=== PATIENT | female | born 1945 | race Hispanic/Latino ===

== ENCOUNTER 2017-06-16 17:11 | Emergency (ER) | payer OTHER ==
[2017-06-16 17:43] LABS: BASOPHILS % (AUTO) 0.9 % (0.0-5.0); EOSINOPHILS % (AUTO) 1.8 % (0.0-8.0); HEMATOCRIT 31.2 % (36-48); LYMPHOCYTES % (AUTO) 34.4 % (21.0-51.0); MEAN CORPUSCULAR HEMOGLOBIN 27.5 pg (27.0-33.0); MEAN CORPUSCULAR HGB CONC 34.3 g/dL (32.0-36.0); MEAN CORPUSCULAR VOLUME 80.2 fL (79-99); MONOCYTES % (AUTO) 6.5 % (3.0-13.0); NEUTROPHILS % (AUTO) 56.4 % (40.0-77.0); PLATELET COUNT (AUTO) 348 K/uL (130-400); RED BLOOD CELL COUNT(AUTO) 3.89 MIL/uL (4.00-5.50); RED CELL DISTRIBUTION WIDTH 14.6 % (11.0-15.5); WHITE BLOOD COUNT (AUTO) 7.5 K/uL (4.8-10.8)
[2017-06-16] MEDS ORDERED: ASPIRIN 325 MG TABLET ONE (17:46)
[2017-06-16] MEDS ORDERED: FAMOTIDINE 20MG TAB 20 MG TAB ONE (17:47)
[2017-06-16] MEDS ORDERED: SODIUM CHLORIDE 0.9% 1000ML 1,000 ML IV ONE (17:47)
[2017-06-16 18:18] LABS: B-TYPE NATRIURETIC PEPTIDE 24 pg/mL (0-100)
[2017-06-16 18:32] LABS: CARBON DIOXIDE 29 mmol/L (21-32); CHLORIDE 99 mmol/L (101-111); CREATININE 1.1 mg/dL (0.5-1.5); GLOMERULAR FILTR. RATE CALC 52 mL/min (>60); GLUCOSE,RANDOM 115 mg/dL (70-105); POTASSIUM 3.3 mmol/L (3.5-5.1); SODIUM SERUM 137 mmol/L (136-145); UREA NITROGEN, BLOOD 16 mg/dL (7-18)
[2017-06-16 18:45] LABS: ALANINE AMINOTRANSFERASE 15 U/L (12-78); ALBUMIN 3.3 g/dL (3.5-5.0); ASPARTATE AMINOTRANSFERASE 12 U/L (10-37); BILIRUBIN,TOTAL 0.2 mg/dL (0.2-1.0); CREATINE KINASE MB < 0.5 ng/mL (0.5-3.6); CREATINE KINASE, TOTAL 63 U/L (21-232); TOTAL PROTEIN, SERUM 7.4 g/dL (6.0-8.3)
[2017-06-16 20:30] LABS: APPEARANCE,URINE Clear (CLEAR); BILIRUBIN,URINE Negative (NEGATIVE); COLOR,URINE Yellow (YELLOW); GLUCOSE, URINE (UA) Negative (NEGATIVE); KETONES,URINE Negative (NEGATIVE); LEUKOCYTE ESTERASE ,URINE Large (NEGATIVE); NITRATE,URINE Negative (NEGATIVE); OCCULT BLOOD,URINE Negative (NEGATIVE); PROTEIN,URINE Negative (NEGATIVE); UROBILINOGEN,URINE 0.2 mg/dL (0.2-1.0)
[2017-06-16 20:45] LABS: BACTERIA,URINE Few /HPF (None Seen)
== END 2017-06-16 20:41 | disposition home or self-care (01) ==
LOC: EDH 17:11
DX: R07.9 Chest pain, unspecified (principal); E11.9 Type 2 diabetes mellitus without complications; E78.5 Hyperlipidemia, unspecified; K21.9 Gastro-esophageal reflux disease without esophagitis; I10 Essential (primary) hypertension; Z88.6 Allergy status to analgesic agent; Z79.4 Long term (current) use of insulin
CPT/HCPCS: 36415; 71045; 80053; 81001; 82550; 82553; 83880; 84443; 84484; 85025; 86141; 87804 ×2; 93005; 96360; 99285; J7030

== ENCOUNTER → 2017-06-22 | Outpatient (CLI) | payer OTHER ==
[~2017-06-22] MED LIST: REGADENOSON 0.4 MG/5 ML PF SYG IVP SCH
== END | disposition home or self-care (01) ==
LOC: RAH 08:09
PROVIDERS: ATTEND Family Medicine
DX: I25.111 Atherosclerotic heart disease of native coronary artery with angina pectoris with documented spasm (principal); I10 Essential (primary) hypertension
CPT/HCPCS: 78452; 93017; 96374; A9500 ×2; J2785

== ENCOUNTER → 2017-08-03 | Outpatient (CLI) | payer OTHER | END | disposition home or self-care (01) | LOC: RAH 14:23 | PROVIDERS: ATTEND Family Medicine | DX: Z12.31 Encounter for screening mammogram for malignant neoplasm of breast (principal) | CPT/HCPCS: 77067 ==

== ENCOUNTER 2017-09-07 11:47 | Emergency (ER) | payer OTHER ==
[2017-09-07 12:25] LABS: BASOPHILS % (AUTO) 0.2 % (0.0-5.0); EOSINOPHILS % (AUTO) 1.1 % (0.0-8.0); HEMATOCRIT 31.2 % (36-48); MEAN CORPUSCULAR HEMOGLOBIN 27.5 pg (27.0-33.0); MEAN CORPUSCULAR HGB CONC 34.3 g/dL (32.0-36.0); MEAN CORPUSCULAR VOLUME 80.2 fL (79-99); MONOCYTES % (AUTO) 5.9 % (3.0-13.0); NEUTROPHILS % (AUTO) 66.8 % (40.0-77.0); PLATELET COUNT (AUTO) 350 K/uL (130-400); RED BLOOD CELL COUNT(AUTO) 3.89 MIL/uL (4.00-5.50); RED CELL DISTRIBUTION WIDTH 14.6 % (11.0-15.5); WHITE BLOOD COUNT (AUTO) 8.6 K/uL (4.8-10.8)
[2017-09-07 12:47] LABS: CREATININE 1.8 mg/dL (0.5-1.5); POTASSIUM 3.1 mmol/L (3.5-5.1)
[2017-09-07] MEDS ORDERED: SODIUM CHLORIDE 0.9% 1000ML 1,000 ML IV ONE (12:47)
[2017-09-07 12:51] LABS: BILIRUBIN,TOTAL 0.2 mg/dL (0.2-1.0); TOTAL PROTEIN, SERUM 6.9 g/dL (6.0-8.3)
[2017-09-07] MEDS ORDERED: POTASSIUM BICARB/CIT AC 25 MEQ TABLET.EFF ONE (13:53)
[2017-09-07 15:38] LABS: APPEARANCE,URINE Clear (CLEAR); BILIRUBIN,URINE Negative (NEGATIVE); COLOR,URINE Yellow (YELLOW); GLUCOSE, URINE (UA) Negative (NEGATIVE); KETONES,URINE Negative (NEGATIVE); LEUKOCYTE ESTERASE ,URINE Small (NEGATIVE); NITRATE,URINE Negative (NEGATIVE); OCCULT BLOOD,URINE Negative (NEGATIVE); PROTEIN,URINE Negative (NEGATIVE); UROBILINOGEN,URINE 0.2 mg/dL (0.2-1.0)
[2017-09-07 15:48] LABS: BACTERIA,URINE Few /HPF (None Seen); RBC,URINE None Seen /HPF (0-1); SQUAMOUS EPITHELIAL CELL,UR 0-2 /HPF (0-2)
== END 2017-09-07 16:20 | disposition home or self-care (01) ==
LOC: EDH 11:47
DX: E86.0 Dehydration (principal); E11.9 Type 2 diabetes mellitus without complications; K21.9 Gastro-esophageal reflux disease without esophagitis; E78.5 Hyperlipidemia, unspecified; I10 Essential (primary) hypertension; Z90.710 Acquired absence of both cervix and uterus; Z98.51 Tubal ligation status; Z88.5 Allergy status to narcotic agent
CPT/HCPCS: 36415; 80053; 81001; 85025; 93005; 96360; 96361; 99285; J7030

== ENCOUNTER → 2018-03-21 | Outpatient (CLI) | payer OTHER | END | disposition home or self-care (01) | LOC: OIH 10:54 | PROVIDERS: ATTEND Family Medicine | DX: M17.11 Unilateral primary osteoarthritis, right knee (principal); M25.761 Osteophyte, right knee | CPT/HCPCS: 73562 ==

== ENCOUNTER 2018-03-22 16:35 | Inpatient (IN) | payer OTHER ==
[~2018-03-22] VITALS: Ht 157.5 cm; Wt 117.9 kg
[2018-03-22 17:08] LABS: BASOPHILS % (AUTO) 0.5 % (0.0-5.0); EOSINOPHILS % (AUTO) 0.9 % (0.0-8.0); HEMATOCRIT 32.6 % (36-48); MEAN CORPUSCULAR HEMOGLOBIN 26.1 pg (27.0-33.0); MEAN CORPUSCULAR HGB CONC 33.1 g/dL (32.0-36.0); MONOCYTES % (AUTO) 5.9 % (3.0-13.0); NEUTROPHILS % (AUTO) 66.7 % (40.0-77.0); PLATELET COUNT (AUTO) 326 K/uL (130-400); RED BLOOD CELL COUNT(AUTO) 4.12 MIL/uL (4.00-5.50); WHITE BLOOD COUNT (AUTO) 8.8 K/uL (4.8-10.8)
[2018-03-22 17:21] LABS: CREATININE 1.1 mg/dL (0.5-1.5); POTASSIUM 3.5 mmol/L (3.5-5.1)
[2018-03-22] MEDS ORDERED: SODIUM CHLORIDE 0.9% 1000ML 1,000 ML IV ONE (17:22)
[2018-03-22] MEDS ORDERED: MECLIZINE HCL 25 MG TABLET ONE (17:22)
[2018-03-22 17:23] LABS: INR 1.01 (0.85-1.15); PARTIAL THROMBOPLASTIN TIME 30.8 SEC (26.3-35.5); PROTHROMBIN TIME 10.6 SEC (9.6-11.6)
[2018-03-22 17:26] LABS: ALBUMIN 3.2 g/dL (3.5-5.0); BILIRUBIN,TOTAL 0.2 mg/dL (0.2-1.0); TOTAL PROTEIN, SERUM 7.3 g/dL (6.0-8.3)
[2018-03-22 17:38] LABS: CREATINE KINASE, TOTAL 71 U/L (21-232); MYOGLOBIN 46 ng/mL (10-92)
[2018-03-22 17:40] LABS: APPEARANCE,URINE Clear (CLEAR); BILIRUBIN,URINE Negative (NEGATIVE); COLOR,URINE Yellow (YELLOW); GLUCOSE, URINE (UA) Negative (NEGATIVE); KETONES,URINE Negative (NEGATIVE); LEUKOCYTE ESTERASE ,URINE Trace (NEGATIVE); NITRATE,URINE Negative (NEGATIVE); OCCULT BLOOD,URINE Negative (NEGATIVE); PH,URINE 6.5 (5.0-8.0); PROTEIN,URINE Negative (NEGATIVE); UROBILINOGEN,URINE 0.2 mg/dL (0.2-1.0)
[2018-03-22 18:42] LABS: BACTERIA,URINE Rare /HPF (None Seen); RBC,URINE 0-1 /HPF (0-1); WBC,URINE 0-1 /HPF (0-1)
[2018-03-22 18:43] LABS: SQUAMOUS EPITHELIAL CELL,UR Few /HPF (0-2)
[2018-03-22] MEDS ORDERED: MECLIZINE HCL 25 MG TABLET PO PRN (21:30)
[2018-03-22] MEDS ORDERED: ACETAMINOPHEN 325 MG TAB PO PRN (21:45)
[2018-03-22] MEDS ORDERED: ONDANSETRON HCL 4 MG/2 ML VIAL IV PRN (21:45)
[2018-03-22 22:55] VITALS: BP 145/73
[2018-03-22] MEDS ORDERED: GLUCAGON 1MG KIT 1 MG ML IM PRN (23:00)
[2018-03-22] MEDS ORDERED: DEXTROSE 50%-WATER 50 ML DISP.SYRIN IV PRN (23:00)
[2018-03-23] VITALS (7 sets, daily range): BP systolic 131–160; BP diastolic 62–91
[2018-03-23 05:11] LABS: BASOPHILS % (AUTO) 0.6 % (0.0-5.0); EOSINOPHILS % (AUTO) 1.6 % (0.0-8.0); HEMATOCRIT 29.5 % (36-48); LYMPHOCYTES % (AUTO) 34.2 % (21.0-51.0); MEAN CORPUSCULAR HEMOGLOBIN 27.3 pg (27.0-33.0); MEAN CORPUSCULAR HGB CONC 34.6 g/dL (32.0-36.0); MONOCYTES % (AUTO) 8.4 % (3.0-13.0); NEUTROPHILS % (AUTO) 55.2 % (40.0-77.0); PLATELET COUNT (AUTO) 325 K/uL (130-400); RED BLOOD CELL COUNT(AUTO) 3.73 MIL/uL (4.00-5.50); RED CELL DISTRIBUTION WIDTH 14.8 % (11.0-15.5); WHITE BLOOD COUNT (AUTO) 6.9 K/uL (4.8-10.8)
[2018-03-23 05:20] LABS: BILIRUBIN,TOTAL 0.3 mg/dL (0.2-1.0); POTASSIUM 3.2 mmol/L (3.5-5.1); TOTAL PROTEIN, SERUM 6.7 g/dL (6.0-8.3)
[2018-03-23] MEDS: INSULIN HUMULIN R 100 UNIT/ML 3ML SQ SCH ×4 (06:07→21:00)
[2018-03-23] MEDS ORDERED: GADODIAMIDE 10 MMOL/20 ML ML IV ONE (08:08)
[2018-03-23] MEDS ORDERED: LORAZEPAM 2 MG/ML 1 ML VIAL ONE (08:19)
[2018-03-23] MEDS ORDERED: POTASSIUM CHLORIDE 10% ELIXIR 20 MEQ/15 ML UDCUP PO PRN (09:00)
[2018-03-23] MEDS ORDERED: POTASSIUM CHLORIDE 10MEQ/100ML 100 ML IV PRN (09:00)
[2018-03-23] MEDS ORDERED: LIDOCAINE HCL-MPF 1% 2ML VIAL IVP PRN (09:00)
[2018-03-23] MEDS: LORAZEPAM 2 MG/ML 1 ML VIAL IVP SCH (10:02)
[2018-03-23] MEDS: FAMOTIDINE 20MG TAB 20 MG TAB PO SCH ×2 (11:09→23:12)
[2018-03-23] MEDS: METOCLOPRAMIDE 5 MG TABLET PO SCH ×2 (11:09→17:08)
[2018-03-23] MEDS: ENOXAPARIN SODIUM 30 MG/0.3 ML SQ SCH (11:10)
[2018-03-23] MEDS: POTASSIUM CHLORIDE 20 MEQ ERTAB PO PRN ×3 (12:58→17:08)
[2018-03-24] VITALS (11 sets, daily range): BP systolic 113–162; BP diastolic 64–98
[2018-03-24 05:08] LABS: BASOPHILS % (AUTO) 0.6 % (0.0-5.0); EOSINOPHILS % (AUTO) 1.3 % (0.0-8.0); HEMATOCRIT 31.8 % (36-48); LYMPHOCYTES % (AUTO) 34.3 % (21.0-51.0); MEAN CORPUSCULAR HEMOGLOBIN 26.2 pg (27.0-33.0); MEAN CORPUSCULAR HGB CONC 33.3 g/dL (32.0-36.0); MEAN CORPUSCULAR VOLUME 78.7 fL (79-99); MONOCYTES % (AUTO) 8.4 % (3.0-13.0); NEUTROPHILS % (AUTO) 55.4 % (40.0-77.0); PLATELET COUNT (AUTO) 296 K/uL (130-400); RED BLOOD CELL COUNT(AUTO) 4.04 MIL/uL (4.00-5.50); RED CELL DISTRIBUTION WIDTH 14.9 % (11.0-15.5); WHITE BLOOD COUNT (AUTO) 5.9 K/uL (4.8-10.8)
[2018-03-24 05:10] LABS: CREATININE 0.9 mg/dL (0.5-1.5); POTASSIUM 3.4 mmol/L (3.5-5.1)
[2018-03-24] MEDS: INSULIN HUMULIN R 100 UNIT/ML 3ML SQ SCH ×4 (06:23→21:51)
[2018-03-24] MEDS: LORAZEPAM 2 MG/ML 1 ML VIAL IVP SCH (08:00)
[2018-03-24] MEDS: FAMOTIDINE 20MG TAB 20 MG TAB PO SCH ×2 (10:14→20:57)
[2018-03-24] MEDS: MECLIZINE HCL 25 MG TABLET PO SCH ×3 (10:16→20:57)
[2018-03-24] MEDS: ENOXAPARIN SODIUM 30 MG/0.3 ML SQ SCH (10:17)
[2018-03-24] MEDS: METOCLOPRAMIDE 5 MG TABLET PO SCH ×3 (10:31→17:48)
[2018-03-24] MEDS: MAGNESIUM 2GM PREMIX 50ML 50 ML IV PRN (13:45)
[2018-03-24] MEDS: POTASSIUM CHLORIDE 20 MEQ ERTAB PO PRN ×2 (15:34→17:49)
[2018-03-25 03:35] VITALS: BP 153/78
[2018-03-25 05:46] LABS: BASOPHILS % (AUTO) 0.7 % (0.0-5.0); EOSINOPHILS % (AUTO) 2.1 % (0.0-8.0); LYMPHOCYTES % (AUTO) 30.1 % (21.0-51.0); MEAN CORPUSCULAR HEMOGLOBIN 26.5 pg (27.0-33.0); MEAN CORPUSCULAR HGB CONC 33.5 g/dL (32.0-36.0); MEAN CORPUSCULAR VOLUME 79.2 fL (79-99); MONOCYTES % (AUTO) 8.4 % (3.0-13.0); NEUTROPHILS % (AUTO) 58.7 % (40.0-77.0); PLATELET COUNT (AUTO) 336 K/uL (130-400); RED BLOOD CELL COUNT(AUTO) 4.04 MIL/uL (4.00-5.50); RED CELL DISTRIBUTION WIDTH 15.2 % (11.0-15.5); WHITE BLOOD COUNT (AUTO) 5.4 K/uL (4.8-10.8)
[2018-03-25 05:49] LABS: CREATININE 0.9 mg/dL (0.5-1.5); POTASSIUM 3.5 mmol/L (3.5-5.1)
[2018-03-25] MEDS: METOCLOPRAMIDE 5 MG TABLET PO SCH ×2 (06:25→13:26)
[2018-03-25] MEDS: INSULIN HUMULIN R 100 UNIT/ML 3ML SQ SCH ×2 (06:25→13:30)
[2018-03-25] MEDS: LORAZEPAM 2 MG/ML 1 ML VIAL IVP SCH (08:15)
[2018-03-25] MEDS ORDERED: ASPIRIN 81MG TAB.CHEW PO SCH (09:00)
[2018-03-25] MEDS: ENOXAPARIN SODIUM 30 MG/0.3 ML SQ SCH (09:01)
[2018-03-25] MEDS: FAMOTIDINE 20MG TAB 20 MG TAB PO SCH (09:01)
[2018-03-25] MEDS: MECLIZINE HCL 25 MG TABLET PO SCH ×2 (09:01→13:27)
[2018-03-25] MEDS: POTASSIUM CHLORIDE 20 MEQ ERTAB PO PRN ×2 (09:03→13:27)
[2018-03-25] MEDS ORDERED: MECL-111 PO (09:16)
[2018-03-25] MEDS: MAGNESIUM 2GM PREMIX 50ML 50 ML IV PRN (10:25)
[2018-03-25 12:00] VITALS: BP 160/94
[2018-03-25 14:49] LABS: MAGNESIUM 2.2 mg/dL (1.80-2.40); POTASSIUM 3.9 mmol/L (3.5-5.1)
== END 2018-03-25 15:55 | disposition home or self-care (01) | DRG 69 ==
LOC: EDH 16:35 → EDHIP 20:00 → OBSVTOIN 20:00 → 3DH 21:59
PROVIDERS: ADMIT Internal Medicine; ATTEND Internal Medicine
DX: G45.9 Transient cerebral ischemic attack, unspecified (principal); H81.10 Benign paroxysmal vertigo, unspecified ear; E11.9 Type 2 diabetes mellitus without complications; E78.5 Hyperlipidemia, unspecified; F40.240 Claustrophobia; I10 Essential (primary) hypertension; K21.9 Gastro-esophageal reflux disease without esophagitis; R29.700 NIHSS score 0; Z79.4 Long term (current) use of insulin; Z90.710 Acquired absence of both cervix and uterus
CPT/HCPCS: 36415; 70450; 70544; 70553; 71045; 73562; 80048; 80053; 81001; 82550; 82948; 83735; 83874; 84132; 84484; 85025; 85610; 85730; 93005; 93880; A9579; J1650; J1815; J2060; J2405; J3475; J7030

== ENCOUNTER 2018-05-12 07:59 | Emergency (ER) | payer OTHER ==
[~2018-05-12 07:59] MED LIST changes: +MECL-111 PO; -REGADENOSON 0.4 MG/5 ML PF SYG IVP SCH
[2018-05-12 08:36] LABS: APPEARANCE,URINE Clear (CLEAR); BILIRUBIN,URINE Negative (NEGATIVE); COLOR,URINE Yellow (YELLOW); GLUCOSE, URINE (UA) Negative (NEGATIVE); KETONES,URINE Negative (NEGATIVE); LEUKOCYTE ESTERASE ,URINE Trace (NEGATIVE); NITRATE,URINE Negative (NEGATIVE); OCCULT BLOOD,URINE Negative (NEGATIVE); PROTEIN,URINE Negative (NEGATIVE); UROBILINOGEN,URINE 0.2 mg/dL (0.2-1.0)
[2018-05-12] MEDS ORDERED: IOHEXOL-350 75 ML VIAL IV ONE (08:53)
[2018-05-12] MEDS ORDERED: SODIUM CHLORIDE 0.9% 500ML 500 ML IV ONE (08:57)
[2018-05-12] MEDS ORDERED: KETOROLAC TROMETHAMINE 15MG/ML ONE (08:57)
[2018-05-12] MEDS ORDERED: ONDANSETRON HCL 4 MG/2 ML VIAL ONE (08:57)
[2018-05-12 09:02] LABS: BASOPHILS % (AUTO) 0.5 % (0.0-5.0); EOSINOPHILS % (AUTO) 1.4 % (0.0-8.0); HEMATOCRIT 34.7 % (36-48); LYMPHOCYTES % (AUTO) 26.1 % (21.0-51.0); MEAN CORPUSCULAR HEMOGLOBIN 25.9 pg (27.0-33.0); MEAN CORPUSCULAR HGB CONC 32.8 g/dL (32.0-36.0); MEAN CORPUSCULAR VOLUME 79.1 fL (79-99); MONOCYTES % (AUTO) 6.5 % (3.0-13.0); NEUTROPHILS % (AUTO) 65.5 % (40.0-77.0); NUCLEATED RED BLOOD CELLS 0.1 % (0.0-0.19); PLATELET COUNT (AUTO) 313 K/uL (130-400); RED BLOOD CELL COUNT(AUTO) 4.39 MIL/uL (4.00-5.50); RED CELL DISTRIBUTION WIDTH 15.6 % (11.0-15.5); WHITE BLOOD COUNT (AUTO) 6.9 K/uL (4.8-10.8)
[2018-05-12 09:08] LABS: POTASSIUM 3.6 mmol/L (3.5-5.1)
[2018-05-12 09:13] LABS: ALBUMIN 3.4 g/dL (3.5-5.0); BILIRUBIN,TOTAL 0.4 mg/dL (0.2-1.0); TOTAL PROTEIN, SERUM 7.5 g/dL (6.0-8.3)
[2018-05-12 09:18] LABS: BACTERIA,URINE Few /HPF (None Seen); RBC,URINE 0-1 /HPF (0-1); WBC,URINE 0-1 /HPF (0-1)
== END 2018-05-12 11:17 | disposition home or self-care (01) ==
LOC: EDH 07:59
DX: R10.84 Generalized abdominal pain (principal); K21.9 Gastro-esophageal reflux disease without esophagitis; R11.2 Nausea with vomiting, unspecified; I10 Essential (primary) hypertension; E11.9 Type 2 diabetes mellitus without complications; Z88.6 Allergy status to analgesic agent; Z87.891 Personal history of nicotine dependence
CPT/HCPCS: 36415; 74177; 80053; 81001; 82550; 83690; 84484; 85025; 93005; 96361; 96374; 96375; 99284; J1885; J2405; J7040; Q9967

== ENCOUNTER 2018-08-26 20:52 | Observation (INO) | payer OTHER ==
[~2018-08-26] VITALS: Ht 157.5 cm; Wt 117.0 kg
[2018-08-26 21:22] LABS: BASOPHILS % (AUTO) 0.5 % (0.0-5.0); EOSINOPHILS % (AUTO) 1.1 % (0.0-8.0); HEMATOCRIT 31.4 % (36-48); LYMPHOCYTES % (AUTO) 27.8 % (21.0-51.0); MEAN CORPUSCULAR HEMOGLOBIN 26.8 pg (27.0-33.0); MONOCYTES % (AUTO) 6.4 % (3.0-13.0); NEUTROPHILS % (AUTO) 64.2 % (40.0-77.0); PLATELET COUNT (AUTO) 357 K/uL (130-400); RED BLOOD CELL COUNT(AUTO) 3.97 MIL/uL (4.00-5.50); RED CELL DISTRIBUTION WIDTH 15.4 % (11.0-15.5); WHITE BLOOD COUNT (AUTO) 9.3 K/uL (4.8-10.8)
[2018-08-26 21:29] LABS: INR 0.98 (0.85-1.15); PROTHROMBIN TIME 10.3 SEC (9.6-11.6)
[2018-08-26 21:32] LABS: CREATININE 1.3 mg/dL (0.5-1.5); POTASSIUM 3.4 mmol/L (3.5-5.1)
[2018-08-26 21:43] LABS: ALBUMIN 3.3 g/dL (3.5-5.0); BILIRUBIN,TOTAL 0.3 mg/dL (0.2-1.0); TOTAL PROTEIN, SERUM 7.2 g/dL (6.0-8.3)
[2018-08-26] MEDS ORDERED: ASPIRIN 325 MG TABLET ONE (22:09)
[2018-08-26] MEDS ORDERED: NITROGLYCERIN 0.4 MG SL TAB SL ONE (23:44)
[2018-08-27] MEDS ORDERED: IOHEXOL-350 75 ML VIAL IV ONE (01:22)
[2018-08-27] MEDS ORDERED: ASPIRIN 325 MG TABLET ONE (03:06)
[2018-08-27 05:08] VITALS: BP 152/81
[2018-08-27] MEDS ORDERED: GLUCAGON 1MG KIT 1 MG ML IM PRN (06:00)
[2018-08-27] MEDS ORDERED: DEXTROSE 50%-WATER 50 ML DISP.SYRIN IV PRN (06:00)
[2018-08-27] MEDS: INSULIN HUMULIN R 100 UNIT/ML 3ML SQ SCH ×4 (06:45→20:08)
[2018-08-27 06:48] LABS: CREATINE KINASE, TOTAL 60 U/L (21-232); MYOGLOBIN 55 ng/mL (10-92); TROPONIN I < 0.04 ng/mL (0.00-0.06)
[2018-08-27 08:00] VITALS: BP 138/75
[2018-08-27] MEDS: ASPIRIN 81MG TAB.CHEW PO SCH (08:58)
[2018-08-27] MEDS: NITROGLYCERIN 1GM/1 INCH PACKET TD SCH ×2 (08:59→15:17)
[2018-08-27] MEDS ORDERED: ATORVASTATIN CALCIUM 40 MG TABLET PO SCH (09:00)
[2018-08-27 11:42] VITALS: BP 142/69
[2018-08-27] MEDS ORDERED: PHARMACY COMMUNICATION MISC SCH ×2 (12:00→17:30)
[2018-08-27] MEDS ORDERED: COMPOUND PO MISCELLANEOUS 1 EACH MISC MISC PRN (12:00)
[2018-08-27] MEDS ORDERED: LIDOCAINE HCL 2% VISCOUS 30 ML, MAG HYDROX/AL HYDROX/SIMETH 30 ML, DICYCLOMINE HCL 20 MG PO SCH ×6 (12:00)
[2018-08-27] MEDS ORDERED: LISI1TAB13 PO (12:34)
[2018-08-27] MEDS ORDERED: ISOS30TA6 PO (12:34)
[2018-08-27] MEDS ORDERED: ASPI-555 PO (12:34)
[2018-08-27] MEDS ORDERED: LEVO112T7 PO (12:34)
[2018-08-27] MEDS ORDERED: METO5TAB2 PO (12:34)
[2018-08-27] MEDS ORDERED: SUCR1TAB2 PO (12:34)
[2018-08-27] MEDS ORDERED: SIMV40TA5 PO (12:34)
[2018-08-27] MEDS ORDERED: PREG100C PO (12:34)
[2018-08-27] MEDS ORDERED: FENO160T16 PO (12:34)
[2018-08-27] MEDS ORDERED: OMEP20TA25 PO (12:34)
[2018-08-27] MEDS ORDERED: NIFE60TA81 PO (12:34)
[2018-08-27] MEDS ORDERED: METF-446 PO (12:34)
[2018-08-27] MEDS ORDERED: METO200T49 PO (12:34)
[2018-08-27] MEDS ORDERED: GLIP10TA9 PO (12:34)
[2018-08-27] MEDS ORDERED: BIMA12.5OS OU (12:34)
[2018-08-27 13:24] LABS: CREATINE KINASE, TOTAL 56 U/L (21-232); MYOGLOBIN 41 ng/mL (10-92); TROPONIN I < 0.04 ng/mL (0.00-0.06)
[2018-08-27] MEDS ORDERED: POTASSIUM CHLORIDE 10% ELIXIR 20 MEQ/15 ML UDCUP PO PRN (13:45)
[2018-08-27] MEDS ORDERED: POTASSIUM CHLORIDE 20MEQ/100ML 100 ML IV PRN (13:45)
[2018-08-27] MEDS ORDERED: LIDOCAINE HCL-MPF 1% 2ML VIAL IVP PRN (13:45)
[2018-08-27] MEDS: POTASSIUM CHLORIDE 20 MEQ ERTAB PO PRN ×2 (15:16→17:27)
[2018-08-27 16:00] VITALS: BP 131/78
[2018-08-27] MEDS: **HM**(Fenofibrate 160 MG PO SCH (17:24)
[2018-08-27] MEDS ORDERED: LIDOCAINE HCL 2% VISCOUS 30 ML, MAG HYDROX/AL HYDROX/SIMETH 30 ML, DICYCLOMINE HCL 20 MG PO PRN ×3 (17:29)
[2018-08-27 19:07] VITALS: BP 155/72
[2018-08-27] MEDS: METOPROLOL TARTRATE 50 MG TAB PO SCH (19:34)
[2018-08-27] MEDS: SIMVASTATIN 20 MG TABLET PO SCH (19:36)
[2018-08-27] MEDS: ACETAMINOPHEN 325 MG TAB PO PRN (20:14)
[2018-08-27 23:22] VITALS: BP 133/60
[2018-08-28 03:36] VITALS: BP 140/76
[2018-08-28 04:54] LABS: POTASSIUM 3.6 mmol/L (3.5-5.1)
[2018-08-28] MEDS: INSULIN HUMULIN R 100 UNIT/ML 3ML SQ SCH ×4 (05:48→21:00)
[2018-08-28 08:00] VITALS: BP 166/73
[2018-08-28] MEDS: ASPIRIN 81MG TAB.CHEW PO SCH (09:23)
[2018-08-28] MEDS: LISINOPRIL 20 MG TABLET PO SCH (09:23)
[2018-08-28] MEDS: METOPROLOL TARTRATE 50 MG TAB PO SCH ×2 (09:23→19:44)
[2018-08-28] MEDS: HYDROCHLOROTHIAZIDE 25 MG TABLET PO SCH (09:23)
[2018-08-28] MEDS ORDERED: REGADENOSON 0.4 MG/5 ML PF SYG IVP SCH (12:30)
[2018-08-28 14:00] VITALS: BP 163/82
[2018-08-28] MEDS: ONDANSETRON HCL 4 MG/2 ML VIAL IVP PRN (15:10)
[2018-08-28 16:00] VITALS: BP 162/71
[2018-08-28] MEDS: **HM**(Fenofibrate 160 MG PO SCH (18:00)
[2018-08-28 19:00] VITALS: BP 163/73
[2018-08-28] MEDS: SIMVASTATIN 20 MG TABLET PO SCH (19:44)
[2018-08-28] MEDS: ACETAMINOPHEN 325 MG TAB PO PRN (19:47)
[2018-08-28 23:12] VITALS: BP 142/69
[2018-08-29] VITALS (14 sets, daily range): BP systolic 113–180; BP diastolic 68–95
[2018-08-29] MEDS: INSULIN HUMULIN R 100 UNIT/ML 3ML SQ SCH ×4 (05:56→21:00)
[2018-08-29] MEDS: ASPIRIN 81MG TAB.CHEW PO SCH (08:03)
[2018-08-29] MEDS: METOPROLOL TARTRATE 50 MG TAB PO SCH (08:04)
[2018-08-29] MEDS: HYDROCHLOROTHIAZIDE 25 MG TABLET PO SCH (08:04)
[2018-08-29] MEDS: LISINOPRIL 20 MG TABLET PO SCH (08:04)
[2018-08-29] MEDS: ONDANSETRON HCL 4 MG/2 ML VIAL IVP PRN (08:10)
[2018-08-29] MEDS ORDERED: LISINOPRIL 20 MG TABLET PO SCH (11:30)
[2018-08-29 12:09] LABS: HEMATOCRIT 31.7 % (36-48); MEAN CORPUSCULAR HEMOGLOBIN 26.8 pg (27.0-33.0); MEAN CORPUSCULAR HGB CONC 33.8 g/dL (32.0-36.0); MEAN CORPUSCULAR VOLUME 79.3 fL (79-99); PLATELET COUNT (AUTO) 306 K/uL (130-400); RED CELL DISTRIBUTION WIDTH 15.3 % (11.0-15.5); WHITE BLOOD COUNT (AUTO) 8.3 K/uL (4.8-10.8)
[2018-08-29 12:20] LABS: INR 0.96 (0.85-1.15); PARTIAL THROMBOPLASTIN TIME 28.4 SEC (26.3-35.5); PROTHROMBIN TIME 10.1 SEC (9.6-11.6)
[2018-08-29 12:22] LABS: RETICULOCYTE % (AUTO) 2.31 % (0.42-2.23)
[2018-08-29 12:24] LABS: ALBUMIN 3.3 g/dL (3.5-5.0); BILIRUBIN,TOTAL 0.3 mg/dL (0.2-1.0); POTASSIUM 3.5 mmol/L (3.5-5.1); TOTAL PROTEIN, SERUM 7.1 g/dL (6.0-8.3)
[2018-08-29] MEDS: PANTOPRAZOLE SODIUM 40 MG TABLET.DR PO SCH (12:34)
[2018-08-29 12:46] LABS: % IRON SATURATION 11.5 % (22-44)
[2018-08-29] MEDS ORDERED: LIDOCAINE HCL 1% 20 ML VIAL ONE (17:04)
[2018-08-29] MEDS ORDERED: BIVALIRUDIN 250 MG/VIAL IV ONE (17:04)
[2018-08-29] MEDS ORDERED: IOHEXOL-350 50ML VIAL IV ONE (17:05)
[2018-08-29] MEDS ORDERED: IOHEXOL 350 MG/ML 100ML INFUS..BTL IV ONE (17:05)
[2018-08-29] MEDS ORDERED: NITROGLYCERIN 5 MG/ML 10 ML VIAL IV ONE (17:05)
[2018-08-29] MEDS: **HM**(Fenofibrate 160 MG PO SCH (17:14)
[2018-08-29] MEDS ORDERED: MIDAZOLAM HCL 1 MG/ML 2ML VIAL ONE (18:07)
[2018-08-29] MEDS ORDERED: LABETALOL HCL 5 MG/ML 20ML VIAL IV ONE (18:21)
[2018-08-29] MEDS ORDERED: IOHEXOL-350 75 ML VIAL IV ONE (18:26)
[2018-08-29] MEDS ORDERED: ADENOSINE 90MG/30ML VIAL IV ONE ×2 (18:37→18:38)
[2018-08-29] MEDS ORDERED: HEPARIN SODIUM 1000UNIT/ML 10ML VIAL ONE (18:37)
[2018-08-29] MEDS ORDERED: SODIUM CHLORIDE 0.9% 1000ML 1,000 ML IV SCH (19:17)
[2018-08-30] MEDS: METOPROLOL TARTRATE 50 MG TAB PO SCH ×2 (01:05→09:11)
[2018-08-30] MEDS: PANTOPRAZOLE SODIUM 40 MG TABLET.DR PO SCH ×2 (01:06→09:11)
[2018-08-30] MEDS: SIMVASTATIN 20 MG TABLET PO SCH (01:06)
[2018-08-30] MEDS: ACETAMINOPHEN 325 MG TAB PO PRN (01:07)
[2018-08-30 03:00] VITALS: BP 139/69
[2018-08-30 04:56] LABS: HEMATOCRIT 30.8 % (36-48); MEAN CORPUSCULAR HEMOGLOBIN 26.4 pg (27.0-33.0); MEAN CORPUSCULAR HGB CONC 33.5 g/dL (32.0-36.0); MEAN CORPUSCULAR VOLUME 78.7 fL (79-99); PLATELET COUNT (AUTO) 301 K/uL (130-400); RED BLOOD CELL COUNT(AUTO) 3.91 MIL/uL (4.00-5.50); RED CELL DISTRIBUTION WIDTH 15.4 % (11.0-15.5); WHITE BLOOD COUNT (AUTO) 8.1 K/uL (4.8-10.8)
[2018-08-30] MEDS: POTASSIUM CHLORIDE 20 MEQ ERTAB PO PRN ×3 (05:39→11:40)
[2018-08-30] MEDS: INSULIN HUMULIN R 100 UNIT/ML 3ML SQ SCH ×2 (05:53→11:41)
[2018-08-30 07:55] VITALS: BP 121/56
[2018-08-30] MEDS ORDERED: LISINOPRIL 40 MG TABLET PO SCH (09:00)
[2018-08-30] MEDS: HYDROCHLOROTHIAZIDE 25 MG TABLET PO SCH (09:10)
[2018-08-30] MEDS: ASPIRIN 81MG TAB.CHEW PO SCH (09:10)
[2018-08-30] MEDS ORDERED: METO200T49 PO (10:12)
[2018-08-30] MEDS ORDERED: SPIR25TA6 PO (10:12)
[2018-08-30] MEDS ORDERED: LISI40TA4 PO (10:12)
--- NOTE | 2018-08-30 14:00 | NUR ---
Discharge teaching completed in the room with pt and at side. Emphasis on dx, s/s to monitor for, and when to seek emergency care vs dial 911. Emphasis on cardiology instruction for wt loss, gentle walking program, and importance of keeping all follow up appointments, as well as requesting a referral to a assistant teaching professor for re-evaluation of sleep apnea or CPAP adjustments. Written rx for lisinopril 40 daily and spironolactone 25 daily given to pt. Discussed purpose, route, frequency, and duration of treatments, as well as side effects and adverse effects. Instructed pt which home medications to continue, which to stop, and which to change (pt is to decrease metoprolol from 200 mg to 100 mg). PIV removed, tip intact, dressed with sterile 2x2 and band aid after hemostasis. Removed tele pack. Pt wheeled to front lobby [place] [facility] [place] via private car. Pt in stable condition at time of discharge.
== END 2018-08-30 14:14 | disposition home or self-care (01) ==
LOC: EDH 20:52 → EDHIP 08-27 03:34 → 4AH 08-27 03:55
PROVIDERS: ADMIT Internal Medicine Critical Care Medicine; ATTEND Internal Medicine Critical Care Medicine
DX: I25.110 Atherosclerotic heart disease of native coronary artery with unstable angina pectoris (principal); I11.0 Hypertensive heart disease with heart failure; I50.32 Chronic diastolic (congestive) heart failure; J44.9 Chronic obstructive pulmonary disease, unspecified; E03.9 Hypothyroidism, unspecified; E11.40 Type 2 diabetes mellitus with diabetic neuropathy, unspecified; E66.01 Morbid (severe) obesity due to excess calories; E87.6 Hypokalemia; E78.2 Mixed hyperlipidemia; G47.30 Sleep apnea, unspecified; K21.9 Gastro-esophageal reflux disease without esophagitis; Z79.4 Long term (current) use of insulin; Z79.899 Other long term (current) drug therapy; Z87.891 Personal history of nicotine dependence
CPT/HCPCS: 36415 ×5; 71045; 71275; 78452; 80048 ×2; 80053 ×2; 80061; 82550 ×3; 82728; 82948 ×14; 83540; 83550; 83690; 83874 ×3; 84484 ×4; 85025; 85027 ×2; 85045; 85378; 85610 ×2; 85730 ×2; 87338; 93005 ×2; 93017; 93458; 93571; 96372 ×4; 96374; 96376; 99284; A9500 ×2; C1760; C1769; C1887; C1894 ×3; G0378 ×83; J0153 ×2; J1644 ×2; J1815 ×7; J2250; J2405 ×2; J2785; J3490 ×2; Q9965; Q9967 ×4; 99156; 99157; J0583

== ENCOUNTER 2019-02-15 08:35 | Emergency (ER) | payer OTHER ==
[~2019-02-15 08:35] MED LIST changes: +ASPI-555 PO; +BIMA12.5OS OU; +FENO160T16 PO; +GLIP10TA9 PO; +LEVO112T7 PO; +LISI40TA4 PO; -MECL-111 PO; +METF-446 PO; +METO200T49 PO; +METO5TAB2 PO; +NIFE60TA81 PO; +OMEP20TA25 PO; +PREG100C PO; +SIMV-46 PO; +SPIR25TA6 PO; +SUCR1TAB2 PO
[2019-02-15] MEDS ORDERED: ONDANSETRON HCL 4 MG/2 ML VIAL ONE (08:47)
[2019-02-15] MEDS ORDERED: MORPHINE SULFATE 4 MG/1ML SYG ONE (08:48)
[2019-02-15 09:25] LABS: CREATININE 1.2 mg/dL (0.5-1.5)
[2019-02-15 09:26] LABS: BASOPHILS % (AUTO) 0.2 % (0.0-5.0); EOSINOPHILS % (AUTO) 0.7 % (0.0-8.0); LYMPHOCYTES % (AUTO) 8.9 % (21.0-51.0); MEAN CORPUSCULAR HEMOGLOBIN 26.8 pg (27.0-33.0); MEAN CORPUSCULAR HGB CONC 33.4 g/dL (32.0-36.0); MEAN CORPUSCULAR VOLUME 80.3 fL (79-99); MONOCYTES % (AUTO) 4.4 % (3.0-13.0); NEUTROPHILS % (AUTO) 85.8 % (40.0-77.0); PLATELET COUNT (AUTO) 325 K/uL (130-400); RED BLOOD CELL COUNT(AUTO) 4.85 MIL/uL (4.00-5.50); RED CELL DISTRIBUTION WIDTH 16.1 % (11.0-15.5); WHITE BLOOD COUNT (AUTO) 13.4 K/uL (4.8-10.8)
[2019-02-15 09:29] LABS: ALBUMIN 3.5 g/dL (3.5-5.0); BILIRUBIN,TOTAL 0.3 mg/dL (0.2-1.0); TOTAL PROTEIN, SERUM 7.3 g/dL (6.0-8.3)
[2019-02-15] MEDS ORDERED: CEFTRIAXONE SODIUM 1 GM ONE (11:02)
[2019-02-15] MEDS ORDERED: SODIUM CHLORIDE 0.9% 50 ML IV ONE (11:02)
[2019-02-15] MEDS ORDERED: LIDOCAINE HCL 2% VISCOUS 15 ML UDCUP ONE (11:20)
[2019-02-15] MEDS ORDERED: MAG HYDROX/AL HYDROX/SIMETH ES 30 ML SUSP UDCUP ONE (11:21)
== END 2019-02-15 12:29 | disposition home or self-care (01) ==
LOC: EDH 08:35
DX: K52.9 Noninfective gastroenteritis and colitis, unspecified (principal); I10 Essential (primary) hypertension; E11.9 Type 2 diabetes mellitus without complications; E78.5 Hyperlipidemia, unspecified; Z79.4 Long term (current) use of insulin; Z90.49 Acquired absence of other specified parts of digestive tract; Z90.710 Acquired absence of both cervix and uterus; Z87.891 Personal history of nicotine dependence
CPT/HCPCS: 36415; 74176; 80053; 82550; 83690; 84484; 85025; 93005; 96361; 96374; 96375; 99285; J0696; J2270; J2405

== ENCOUNTER 2019-04-08 10:54 | Observation (INO) | payer OTHER ==
[~2019-04-08] VITALS: Ht 165.1 cm; Wt 118.5 kg
[2019-04-08 11:43] LABS: BASOPHILS % (AUTO) 0.6 % (0.0-5.0); EOSINOPHILS % (AUTO) 2.2 % (0.0-8.0); HEMATOCRIT 32.1 % (36-48); LYMPHOCYTES % (AUTO) 26.9 % (21.0-51.0); MEAN CORPUSCULAR HEMOGLOBIN 26.5 pg (27.0-33.0); MEAN CORPUSCULAR HGB CONC 32.4 g/dL (32.0-36.0); MEAN CORPUSCULAR VOLUME 81.9 fL (79-99); MONOCYTES % (AUTO) 6.8 % (3.0-13.0); NEUTROPHILS % (AUTO) 63.2 % (40.0-77.0); PLATELET COUNT (AUTO) 331 K/uL (130-400); RED BLOOD CELL COUNT(AUTO) 3.92 MIL/uL (4.00-5.50); RED CELL DISTRIBUTION WIDTH 15.7 % (11.0-15.5); WHITE BLOOD COUNT (AUTO) 6.3 K/uL (4.8-10.8)
[2019-04-08 11:51] LABS: CREATININE 1.4 mg/dL (0.5-1.5); POTASSIUM 4.4 mmol/L (3.5-5.1)
[2019-04-08 11:52] LABS: INR 0.97 (0.85-1.15); PARTIAL THROMBOPLASTIN TIME 26.4 SEC (26.3-35.5); PROTHROMBIN TIME 10.2 SEC (9.6-11.6)
[2019-04-08] MEDS ORDERED: ASPIRIN 325 MG TABLET ONE (11:55)
[2019-04-08 11:56] LABS: ALBUMIN 3.4 g/dL (3.5-5.0); BILIRUBIN,TOTAL 0.3 mg/dL (0.2-1.0); TOTAL PROTEIN, SERUM 7.1 g/dL (6.0-8.3)
[2019-04-08] MEDS ORDERED: NITROGLYCERIN 0.4 MG SL TAB SL ONE (11:56)
[2019-04-08] MEDS ORDERED: NITROGLYCERIN 1GM/1 INCH PACKET TD ONE (13:32)
[2019-04-08] MEDS ORDERED: POTASSIUM CHLORIDE 20MEQ/100ML 100 ML IV PRN (15:30)
[2019-04-08] MEDS ORDERED: POTASSIUM CHLORIDE 20 MEQ ERTAB PO PRN (15:30)
[2019-04-08] MEDS ORDERED: LACTULOSE 20 GM/30 ML UDCUP PO PRN (15:30)
[2019-04-08] MEDS ORDERED: GUAIFENESIN-DM 200/20 MG 10 ML PO PRN (15:30)
[2019-04-08] MEDS ORDERED: DEXTROSE 50%-WATER 50 ML DISP.SYRIN IV PRN (15:30)
[2019-04-08] MEDS ORDERED: DiphenhydrAMINE HCL 50 MG/ML VIAL IV PRN (15:30)
[2019-04-08] MEDS ORDERED: NITROGLYCERIN 0.4 MG SL TAB SL PRN (15:30)
[2019-04-08] MEDS ORDERED: POTASSIUM CHLORIDE 10% ELIXIR 20 MEQ/15 ML UDCUP PO PRN (15:30)
[2019-04-08] MEDS ORDERED: HYDRALAZINE HCL 20 MG/ML VIAL IV PRN (15:30)
[2019-04-08] MEDS ORDERED: LIDOCAINE HCL-MPF 1% 2ML VIAL IV PRN (15:30)
[2019-04-08] MEDS ORDERED: GLUCAGON 1MG KIT 1 MG ML IM PRN (15:30)
[2019-04-08] MEDS ORDERED: ACETAMINOPHEN 325 MG TAB PO PRN ×2 (15:30)
[2019-04-08 18:47] VITALS: BP 125/64
[2019-04-08] MEDS ORDERED: NIFE90TA38 PO (19:47)
[2019-04-08] MEDS ORDERED: GABA-531 PO (19:47)
[2019-04-08] MEDS ORDERED: FURO20TA4 PO (19:47)
[2019-04-08] MEDS ORDERED: OLME40TA18 PO (19:47)
[2019-04-08] MEDS ORDERED: OMEP40CA13 PO (19:47)
[2019-04-08] MEDS ORDERED: BACL10TA PO (19:47)
[2019-04-08] MEDS ORDERED: TRAM50TA4 PO (19:47)
[2019-04-08 20:21] LABS: APPEARANCE,URINE Clear (CLEAR); BILIRUBIN,URINE Negative (NEGATIVE); COLOR,URINE Yellow (YELLOW); GLUCOSE, URINE (UA) Negative (NEGATIVE); KETONES,URINE Negative (NEGATIVE); LEUKOCYTE ESTERASE ,URINE Small (NEGATIVE); NITRATE,URINE Negative (NEGATIVE); OCCULT BLOOD,URINE Negative (NEGATIVE); PH,URINE 5.5 (5.0-8.0); PROTEIN,URINE Negative (NEGATIVE); UROBILINOGEN,URINE 0.2 mg/dL (0.2-1.0)
[2019-04-08 20:31] LABS: BACTERIA,URINE Moderate /HPF (None Seen); MUCUS,URINE None Seen LPF (None Seen); RBC,URINE 0-1 /HPF (0-1); SQUAMOUS EPITHELIAL CELL,UR 0-2 /HPF (0-2)
[2019-04-08] MEDS: INSULIN HUMULIN R 100 UNIT/ML 3ML SQ SCH (21:00)
[2019-04-08] MEDS: FUROSEMIDE 10 MG/ML 4ML VIAL IVP SCH (21:28)
[2019-04-08] MEDS: METOPROLOL TARTRATE 25 MG TAB PO SCH (21:28)
[2019-04-08] MEDS: HEPARIN SODIUM 5000UNIT/ML 1ML VIAL SQ SCH (21:28)
[2019-04-08] MEDS: NITROGLYCERIN 1GM/1 INCH PACKET TD SCH (23:02)
[2019-04-08 23:52] VITALS: BP 111/53
[2019-04-09 03:40] VITALS: BP 112/53
[2019-04-09 05:21] LABS: BASOPHILS % (AUTO) 0.4 % (0.0-5.0); EOSINOPHILS % (AUTO) 2.2 % (0.0-8.0); LYMPHOCYTES % (AUTO) 33.8 % (21.0-51.0); MEAN CORPUSCULAR HEMOGLOBIN 26.6 pg (27.0-33.0); MEAN CORPUSCULAR HGB CONC 32.7 g/dL (32.0-36.0); MEAN CORPUSCULAR VOLUME 81.5 fL (79-99); MONOCYTES % (AUTO) 7.9 % (3.0-13.0); NEUTROPHILS % (AUTO) 55.3 % (40.0-77.0); PLATELET COUNT (AUTO) 311 K/uL (130-400); RED BLOOD CELL COUNT(AUTO) 3.68 MIL/uL (4.00-5.50); RED CELL DISTRIBUTION WIDTH 15.7 % (11.0-15.5); WHITE BLOOD COUNT (AUTO) 5.5 K/uL (4.8-10.8)
[2019-04-09 05:50] LABS: CREATININE 1.3 mg/dL (0.5-1.5); MAGNESIUM 1.3 mg/dL (1.80-2.40); PHOSPHORUS 4.2 mg/dL (2.5-4.9); POTASSIUM 4.1 mmol/L (3.5-5.1); THYROID STIMULATING HORMONE 2.18 uIU/mL (0.36-3.74)
[2019-04-09 05:56] LABS: HEMOGLOBIN A1C 7.6 % (4.0-6.0)
[2019-04-09] MEDS: INSULIN HUMULIN R 100 UNIT/ML 3ML SQ SCH ×3 (06:42→16:44)
[2019-04-09] MEDS: NITROGLYCERIN 1GM/1 INCH PACKET TD SCH ×2 (07:06→14:50)
[2019-04-09 07:40] VITALS: BP 128/67
--- NOTE | 2019-04-09 08:24 | NUR ---
i have spoken to dr Morley and dr Park (covering for Lopez) on the phone and informed of new consults; no orders received at this time.
[2019-04-09] MEDS ORDERED: FAMOTIDINE/PF 20 MG/2 ML VIAL IV SCH (09:00)
[2019-04-09] MEDS ORDERED: ASPIRIN 325 MG TABLET PO SCH (09:00)
[2019-04-09] MEDS: METOPROLOL TARTRATE 25 MG TAB PO SCH (09:02)
[2019-04-09] MEDS: FUROSEMIDE 10 MG/ML 4ML VIAL IVP SCH (09:03)
[2019-04-09] MEDS: HEPARIN SODIUM 5000UNIT/ML 1ML VIAL SQ SCH (09:16)
--- NOTE | 2019-04-09 09:26 | NUR ---
pt c/o chest pain at a 7 on 1-10n scale that lasted about 5 minutes and then returned to a level of 2 to 3 while i was in the room, i called telemetry during episode and they stated she cont. to run ns rhythm, bp was 122/56, hr 83, o2sat 98% on room air; I called and spoke to Dr Morley and he gave me orders for stat EKG, then sent his PA Carter over to see patient and he is here now seeing patient.
[2019-04-09] MEDS ORDERED: MAGNESIUM 2GM PREMIX 50ML 50 ML IV ONE (11:41)
[2019-04-09 11:43] VITALS: BP 129/67
[2019-04-09] MEDS ORDERED: MAGNESIUM 4GM PREMIX 100ML 100 ML IV SCH (11:45)
[2019-04-09] MEDS ORDERED: MAGNESIUM 2GM PREMIX 50ML 50 ML IV PRN (12:00)
--- NOTE | 2019-04-09 12:36 | NUR ---
pt denies chest pain at this time, magnesium 2gm infusing now will give another 2gm at its completion then do recheck, current mg level 1.3
[2019-04-09 16:17] VITALS: BP 138/77
--- NOTE | 2019-04-09 17:21 | NUR ---
magnesium level 2.9 on recheck after replacement complete, kamilah Valle gave approval to d/c home; iv access removed, tele removed; d/c instructions given to patient on spouse on follow up appointments and she stated she already has an appointment tomorrow w/ dr Bucio; she stated understanding of d/c instructions for hypomagnesium and atypical chest pain. and to call for any problems or concerns or return to ed.
== END 2019-04-09 17:28 | disposition home or self-care (01) ==
LOC: EDH 10:54 → EDHIP 13:25 → 4AH 18:12
PROVIDERS: ADMIT Internal Medicine Critical Care Medicine; ATTEND Internal Medicine Critical Care Medicine
DX: R07.89 Other chest pain (principal); I25.10 Atherosclerotic heart disease of native coronary artery without angina pectoris; I13.10 Hypertensive heart and chronic kidney disease without heart failure, with stage 1 through stage 4 chronic kidney disease, or unspecified chronic kidney disease; E11.22 Type 2 diabetes mellitus with diabetic chronic kidney disease; E11.21 Type 2 diabetes mellitus with diabetic nephropathy; N18.9 Chronic kidney disease, unspecified; N17.9 Acute kidney failure, unspecified; D63.8 Anemia in other chronic diseases classified elsewhere; E11.51 Type 2 diabetes mellitus with diabetic peripheral angiopathy without gangrene; E66.9 Obesity, unspecified; E03.9 Hypothyroidism, unspecified; K80.20 Calculus of gallbladder without cholecystitis without obstruction; E78.5 Hyperlipidemia, unspecified; K21.9 Gastro-esophageal reflux disease without esophagitis; G47.30 Sleep apnea, unspecified; Z87.891 Personal history of nicotine dependence; Z99.89 Dependence on other enabling machines and devices; Z96.651 Presence of right artificial knee joint; Z95.818 Presence of other cardiac implants and grafts; Z90.710 Acquired absence of both cervix and uterus; Z90.49 Acquired absence of other specified parts of digestive tract; Z79.4 Long term (current) use of insulin; Z79.82 Long term (current) use of aspirin; Z79.899 Other long term (current) drug therapy; Z88.5 Allergy status to narcotic agent; Z68.41 Body mass index [BMI] 40.0-44.9, adult
CPT/HCPCS: 36415 ×2; 71045; 80048; 80053; 81001; 82550; 82948 ×6; 83036; 83735 ×2; 83880; 84100; 84439; 84443; 84484 ×4; 85025 ×2; 85610; 85730; 93005 ×4; 94660; 96365; 96372 ×2; 96375 ×2; 96376; 99284; G0378 ×26; J1644 ×2; J1815 ×3; J1940 ×2; J3475 ×2; J3490

== ENCOUNTER 2019-09-09 09:09 | Emergency (ER) | payer OTHER ==
[~2019-09-09 09:09] MED LIST changes: +BACL10TA PO; +FURO20TA4 PO; +GABA-531 PO; -NIFE60TA81 PO; +NIFE90TA65 PO; +OLME40TA18 PO; -OMEP20TA25 PO; +OMEP40CA13 PO; +TRAM50TA4 PO
[2019-09-09] MEDS ORDERED: LIDOCAINE HCL 2% VISCOUS 15 ML UDCUP ONE (09:33)
[2019-09-09] MEDS ORDERED: MAG HYDROX/AL HYDROX/SIMETH ES 30 ML SUSP UDCUP ONE (09:33)
[2019-09-09 09:43] LABS: BASOPHILS % (AUTO) 0.5 % (0.0-5.0); EOSINOPHILS % (AUTO) 1.8 % (0.0-8.0); HEMATOCRIT 34.6 % (36-48); LYMPHOCYTES % (AUTO) 20.5 % (21.0-51.0); MEAN CORPUSCULAR HEMOGLOBIN 26.3 pg (27.0-33.0); MEAN CORPUSCULAR HGB CONC 32.4 g/dL (32.0-36.0); MEAN CORPUSCULAR VOLUME 81.2 fL (79-99); MONOCYTES % (AUTO) 4.8 % (3.0-13.0); NEUTROPHILS % (AUTO) 72.2 % (40.0-77.0); PLATELET COUNT (AUTO) 334 K/uL (130-400); RED BLOOD CELL COUNT(AUTO) 4.26 MIL/uL (4.00-5.50); RED CELL DISTRIBUTION WIDTH 16.1 % (11.0-15.5); WHITE BLOOD COUNT (AUTO) 10.1 K/uL (4.8-10.8)
[2019-09-09 09:44] LABS: APPEARANCE,URINE Clear (CLEAR); BILIRUBIN,URINE Negative (NEGATIVE); COLOR,URINE Yellow (YELLOW); GLUCOSE, URINE (UA) TRACE mg/dL (NEGATIVE); KETONES,URINE Negative (NEGATIVE); LEUKOCYTE ESTERASE ,URINE Negative (NEGATIVE); NITRATE,URINE Negative (NEGATIVE); OCCULT BLOOD,URINE Negative (NEGATIVE); PROTEIN,URINE Negative (NEGATIVE); UROBILINOGEN,URINE 0.2 mg/dL (0.2-1.0)
[2019-09-09 09:51] LABS: CREATININE 1.2 mg/dL (0.5-1.5); POTASSIUM 4.6 mmol/L (3.5-5.1)
[2019-09-09 09:55] LABS: ALBUMIN 3.7 g/dL (3.5-5.0); BILIRUBIN,TOTAL 0.3 mg/dL (0.2-1.0); TOTAL PROTEIN, SERUM 7.8 g/dL (6.0-8.3)
== END 2019-09-09 11:07 | disposition home or self-care (01) ==
LOC: EDH 09:09
DX: A08.4 Viral intestinal infection, unspecified (principal); E11.9 Type 2 diabetes mellitus without complications; I10 Essential (primary) hypertension; K21.9 Gastro-esophageal reflux disease without esophagitis; Z88.6 Allergy status to analgesic agent
CPT/HCPCS: 36415; 74176; 80053; 81003; 82150; 83690; 84484; 85025; 93005

== ENCOUNTER 2020-05-28 21:28 | Inpatient (IN) | payer OTHER ==
[~2020-05-28] VITALS: Ht 157.5 cm; Wt 125.0 kg
[~2020-05-28 21:28] MED LIST changes: -ASPI-555 PO; +ASPI-556 PO; -LISI40TA4 PO; +LISI40TA9 PO; -OMEP40CA13 PO; +OMEP40CA21 PO
[2020-05-28 21:42] LABS: BASOPHILS % (AUTO) 0.2 % (0.0-5.0); EOSINOPHILS % (AUTO) 2.7 % (0.0-8.0); HEMATOCRIT 28.8 % (36-48); MEAN CORPUSCULAR HEMOGLOBIN 27.4 pg (27.0-33.0); MEAN CORPUSCULAR HGB CONC 32.3 g/dL (32.0-36.0); MEAN CORPUSCULAR VOLUME 84.7 fL (79-99); MONOCYTES % (AUTO) 7.7 % (3.0-13.0); NEUTROPHILS % (AUTO) 74.9 % (40.0-77.0); PLATELET COUNT (AUTO) 305 K/uL (130-400); RED CELL DISTRIBUTION WIDTH 14.6 % (11.0-15.5); WHITE BLOOD COUNT (AUTO) 10.1 K/uL (4.8-10.8)
[2020-05-28] MEDS ORDERED: ONDANSETRON 4MG INJ ONE (21:44)
[2020-05-28] MEDS ORDERED: PROCHLORPERAZINE 10MG/2ML INJ ONE (21:47)
[2020-05-28 21:53] LABS: CREATININE 1.3 mg/dL (0.5-1.5); POTASSIUM 4.9 mmol/L (3.5-5.1)
[2020-05-28 21:55] LABS: INR 1.01 (0.85-1.15)
[2020-05-28 21:56] LABS: PARTIAL THROMBOPLASTIN TIME 22.4 SEC (26.3-35.5)
[2020-05-28 22:02] LABS: ALBUMIN 2.8 g/dL (3.5-5.0); BILIRUBIN,TOTAL 0.4 mg/dL (0.2-1.0)
[2020-05-28] MEDS ORDERED: 0.9% NACL 500ML IV.SOLN 500 ML IV ONE (23:01)
[2020-05-28] MEDS ORDERED: IOHEXOL-350 75 ML VIAL IV ONE (23:04)
[2020-05-28] MEDS ORDERED: ZOLPIDEM TARTRATE 5 MG TAB PO PRN (23:30)
[2020-05-28] MEDS ORDERED: DiphenhydrAMINE HCL 50 MG/ML VIAL IV PRN (23:30)
[2020-05-28] MEDS ORDERED: ONDANSETRON 4MG INJ IV PRN (23:30)
[2020-05-28] MEDS ORDERED: BENZONATATE 100 MG CAPSULE PO PRN (23:30)
[2020-05-28] MEDS ORDERED: ACETAMINOPHEN 500 MG TABLET ONE (23:45)
[2020-05-29 00:06] LABS: APPEARANCE,URINE Clear (CLEAR); BILIRUBIN,URINE Negative (NEGATIVE); COLOR,URINE Yellow (YELLOW); GLUCOSE, URINE (UA) 500 mg/dL (NEGATIVE); KETONES,URINE 15 mg/dL (NEGATIVE); LEUKOCYTE ESTERASE ,URINE Negative (NEGATIVE); NITRATE,URINE Negative (NEGATIVE); OCCULT BLOOD,URINE Negative (NEGATIVE); PH,URINE 5.5 (5.0-8.0); PROTEIN,URINE Negative (NEGATIVE); UROBILINOGEN,URINE 0.2 mg/dL (0.2-1.0)
[2020-05-29] MEDS ORDERED: ENOXAPARIN SODIUM 80 MG/0.8 ML SQ ONE (00:06)
[2020-05-29 00:14] LABS: BACTERIA,URINE Rare /HPF (None Seen); RBC,URINE 0-1 /HPF (0-1); SQUAMOUS EPITHELIAL CELL,UR 0-2 /HPF (0-2)
[2020-05-29] MEDS ORDERED: HEPARIN 25,000 UNITS/250ML D5W 250 ML IV SCH (06:43)
[2020-05-29 07:43] LABS: INR 1.05 (0.85-1.15); PROTHROMBIN TIME 11.4 SEC (9.6-11.6)
[2020-05-29] MEDS ORDERED: HEPARIN 25,000 UNITS/250ML D5W 250 ML IV ONE ×2 (08:21→21:21)
[2020-05-29] MEDS ORDERED: HEPARIN 5,000 UNIT VIAL ONE ×2 (08:26→08:31)
[2020-05-29 08:50] LABS: PARTIAL THROMBOPLASTIN TIME 19.7 SEC (26.3-35.5)
[2020-05-29] MEDS: ASPIRIN 325 MG TABLET PO SCH (09:00)
[2020-05-29] MEDS ORDERED: FAMOTIDINE 20MG TAB PO SCH (09:00)
[2020-05-29] MEDS ORDERED: ASPIRIN 325 MG TABLET ONE (09:01)
[2020-05-29] MEDS ORDERED: FAMOTIDINE 20MG TAB ONE (09:01)
[2020-05-29] MEDS ORDERED: GLUCAGON 1MG KIT 1 MG ML IM PRN (09:15)
[2020-05-29] MEDS ORDERED: MAGNESIUM 2GM PREMIX 50ML 50 ML IV PRN (09:15)
[2020-05-29] MEDS ORDERED: KCL 20 MEQ ERTAB PO PRN (09:15)
[2020-05-29] MEDS ORDERED: POTASSIUM CHLORIDE 10% ELIXIR 20 MEQ/15 ML UDCUP PO PRN (09:15)
[2020-05-29] MEDS ORDERED: LIDOCAINE HCL-MPF 1% 2ML VIAL IV PRN ×2 (09:15)
[2020-05-29] MEDS ORDERED: POTASSIUM CHLORIDE 20MEQ/100ML 100 ML IV PRN ×2 (09:15)
[2020-05-29] MEDS ORDERED: DEXTROSE 50%-WATER 50 ML DISP.SYRIN IV PRN (09:15)
[2020-05-29] MEDS: NITROGLYCERIN 1GM OINT 1 INCH/1GM TD SCH ×2 (09:30→17:30)
[2020-05-29] MEDS ORDERED: NITROGLYCERIN 1GM OINT 1 INCH/1GM TD ONE (09:37)
[2020-05-29 10:09] LABS: HEMOGLOBIN A1C 7.8 % (4.0-6.0)
[2020-05-29 10:27] LABS: MAGNESIUM 1.3 mg/dL (1.80-2.40); THYROID STIMULATING HORMONE 2.22 uIU/mL (0.36-3.74)
[2020-05-29] MEDS ORDERED: MAGNESIUM 2GM PREMIX 50ML 50 ML IV ONE (10:50)
[2020-05-29] MEDS ORDERED: NIFEDIPINE ER 30 MG TAB PO ONE (13:55)
[2020-05-29] MEDS: NIFEDIPINE 10 MG CAP PO SCH ×2 (14:00→21:00)
[2020-05-29 15:23] LABS: INR 1.05 (0.85-1.15); PROTHROMBIN TIME 11.4 SEC (9.6-11.6)
[2020-05-29 15:24] LABS: PARTIAL THROMBOPLASTIN TIME 71.2 SEC (26.3-35.5)
[2020-05-29] MEDS ORDERED: NIFEDIPINE 10 MG CAP ONE (20:32)
[2020-05-29] MEDS ORDERED: SIMVASTATIN 20 MG TABLET ONE (20:32)
[2020-05-29] MEDS ORDERED: GABAPENTIN 300 MG CAPSULE ONE (20:32)
[2020-05-29] MEDS ORDERED: ZOLPIDEM TARTRATE 5 MG TAB ONE (20:33)
[2020-05-29] MEDS: GABAPENTIN 300 MG CAPSULE PO SCH (21:00)
[2020-05-29] MEDS: SIMVASTATIN 20 MG TABLET PO SCH (21:00)
[2020-05-29 21:40] VITALS: BP 107/66
[2020-05-29 23:59] VITALS: BP 137/65
[2020-05-30] MEDS: NITROGLYCERIN 1GM OINT 1 INCH/1GM TD SCH ×2 (01:55→08:30)
[2020-05-30 03:37] VITALS: BP 135/80
[2020-05-30] MEDS ORDERED: METO10TA3 PO (03:58)
[2020-05-30] MEDS ORDERED: FOLI1TAB85 PO (03:58)
[2020-05-30] MEDS ORDERED: SPIR25TA6 PO (03:58)
[2020-05-30] MEDS ORDERED: NITR0.4T50 SL (03:58)
[2020-05-30] MEDS ORDERED: NIFE90TA65 PO (03:58)
[2020-05-30] MEDS ORDERED: CELE-84 PO (03:58)
[2020-05-30] MEDS ORDERED: GABA600T10 PO (03:58)
[2020-05-30] MEDS: LEVOTHYROXINE 112 MCG TABLET PO SCH (05:55)
[2020-05-30 07:19] VITALS: BP 123/72
[2020-05-30] MEDS: PANTOPRAZOLE 40 MG TAB DR PO SCH (08:28)
[2020-05-30] MEDS: GABAPENTIN 300 MG CAPSULE PO SCH ×2 (08:28→20:02)
[2020-05-30] MEDS: ASPIRIN 325 MG TABLET PO SCH (08:28)
[2020-05-30] MEDS: NIFEDIPINE 10 MG CAP PO SCH ×3 (08:29→20:05)
[2020-05-30 09:21] LABS: HEMATOCRIT 28.8 % (36-48); MEAN CORPUSCULAR HEMOGLOBIN 28.1 pg (27.0-33.0); MEAN CORPUSCULAR HGB CONC 33.3 g/dL (32.0-36.0); MEAN CORPUSCULAR VOLUME 84.2 fL (79-99); RED BLOOD CELL COUNT(AUTO) 3.42 MIL/uL (4.00-5.50); RED CELL DISTRIBUTION WIDTH 14.3 % (11.0-15.5); WHITE BLOOD COUNT (AUTO) 7.9 K/uL (4.8-10.8)
[2020-05-30 09:53] LABS: POTASSIUM 4.6 mmol/L (3.5-5.1)
[2020-05-30] MEDS: BISACODYL 10 MG SUPP.RECT RC SCH (10:00)
[2020-05-30] MEDS: LACTULOSE 20 GM/30 ML UDCUP PO SCH ×2 (10:00→20:03)
[2020-05-30 11:25] VITALS: BP 117/55
[2020-05-30 16:01] VITALS: BP 137/79
[2020-05-30] MEDS: ACETAMINOPHEN 325 MG TAB PO PRN ×2 (17:20→23:41)
[2020-05-30 19:34] VITALS: BP 146/76
[2020-05-30] MEDS: APIXABAN 5 MG TABLET PO SCH (20:03)
[2020-05-30] MEDS: SIMVASTATIN 20 MG TABLET PO SCH (20:03)
[2020-05-30 23:56] VITALS: BP 122/62
[2020-05-31 04:07] VITALS: BP 130/71
[2020-05-31] MEDS: LEVOTHYROXINE 112 MCG TABLET PO SCH (05:41)
[2020-05-31 06:43] LABS: HEMATOCRIT 28.3 % (36-48); MEAN CORPUSCULAR HEMOGLOBIN 27.4 pg (27.0-33.0); MEAN CORPUSCULAR HGB CONC 32.9 g/dL (32.0-36.0); MEAN CORPUSCULAR VOLUME 83.2 fL (79-99); RED BLOOD CELL COUNT(AUTO) 3.4 MIL/uL (4.00-5.50); RED CELL DISTRIBUTION WIDTH 14.3 % (11.0-15.5); WHITE BLOOD COUNT (AUTO) 8.2 K/uL (4.8-10.8)
[2020-05-31 06:54] LABS: POTASSIUM 4.1 mmol/L (3.5-5.1)
[2020-05-31 07:11] LABS: INR 1.07 (0.85-1.15); PROTHROMBIN TIME 11.6 SEC (9.6-11.6)
[2020-05-31 07:12] LABS: PARTIAL THROMBOPLASTIN TIME 30.9 SEC (26.3-35.5)
[2020-05-31 07:14] VITALS: BP 134/75
[2020-05-31] MEDS: BISACODYL 10 MG SUPP.RECT RC SCH (08:30)
[2020-05-31] MEDS: NIFEDIPINE 10 MG CAP PO SCH ×3 (09:00→20:32)
[2020-05-31] MEDS: LACTULOSE 20 GM/30 ML UDCUP PO SCH (09:00)
[2020-05-31] MEDS: ASPIRIN 325 MG TABLET PO SCH (09:01)
[2020-05-31] MEDS: GABAPENTIN 300 MG CAPSULE PO SCH ×2 (09:01→20:33)
[2020-05-31] MEDS: APIXABAN 5 MG TABLET PO SCH ×2 (09:02→20:31)
[2020-05-31] MEDS: PANTOPRAZOLE 40 MG TAB DR PO SCH (09:02)
[2020-05-31] MEDS: ACETAMINOPHEN 325 MG TAB PO PRN ×2 (09:03→20:34)
[2020-05-31] MEDS: FUROSEMIDE 20 MG TABLET PO SCH (09:54)
[2020-05-31] MEDS ORDERED: LACTULOSE 20 GM/30 ML UDCUP PO PRN (10:30)
[2020-05-31 11:17] VITALS: BP 123/61
[2020-05-31] MEDS: INSULIN HUMULIN R 100 UNIT/ML 3ML SQ SCH ×3 (11:47→20:35)
[2020-05-31 15:53] VITALS: BP 119/67
[2020-05-31 19:45] VITALS: BP 140/73
[2020-05-31] MEDS: SIMVASTATIN 20 MG TABLET PO SCH (20:31)
[2020-05-31] MEDS ORDERED: INSULIN GLARGINE 100 UNITS/ML 10 ML VIAL SQ SCH (21:00)
[2020-05-31 23:55] VITALS: BP 114/62
[2020-06-01] MEDS: ACETAMINOPHEN 325 MG TAB PO PRN ×2 (02:57→17:55)
[2020-06-01 04:12] VITALS: BP 116/64
[2020-06-01 04:49] LABS: HEMATOCRIT 27.6 % (36-48); MEAN CORPUSCULAR HEMOGLOBIN 27.2 pg (27.0-33.0); MEAN CORPUSCULAR HGB CONC 32.2 g/dL (32.0-36.0); MEAN CORPUSCULAR VOLUME 84.4 fL (79-99); RED BLOOD CELL COUNT(AUTO) 3.27 MIL/uL (4.00-5.50); RED CELL DISTRIBUTION WIDTH 14.5 % (11.0-15.5)
[2020-06-01 05:07] LABS: ALBUMIN 2.5 g/dL (3.5-5.0); BILIRUBIN,TOTAL 0.3 mg/dL (0.2-1.0); CREATININE 1.1 mg/dL (0.5-1.5); POTASSIUM 3.9 mmol/L (3.5-5.1); TOTAL PROTEIN, SERUM 6.5 g/dL (6.0-8.3)
[2020-06-01] MEDS: LEVOTHYROXINE 112 MCG TABLET PO SCH (06:07)
[2020-06-01] MEDS: INSULIN HUMULIN R 100 UNIT/ML 3ML SQ SCH ×4 (06:08→21:44)
[2020-06-01 07:10] VITALS: BP 138/65
[2020-06-01] MEDS: GABAPENTIN 300 MG CAPSULE PO SCH ×2 (08:12→21:48)
[2020-06-01] MEDS: FUROSEMIDE 20 MG TABLET PO SCH (08:12)
[2020-06-01] MEDS: APIXABAN 5 MG TABLET PO SCH ×2 (08:12→21:48)
[2020-06-01] MEDS: PANTOPRAZOLE 40 MG TAB DR PO SCH (08:12)
[2020-06-01] MEDS: ASPIRIN 81MG CHEW TAB PO SCH (08:13)
[2020-06-01] MEDS: NIFEDIPINE 10 MG CAP PO SCH ×3 (08:13→21:49)
[2020-06-01] MEDS: BISACODYL 10 MG SUPP.RECT RC SCH (08:30)
[2020-06-01 10:45] VITALS: BP 140/66
[2020-06-01 15:48] VITALS: BP 124/75
[2020-06-01 20:05] VITALS: BP 115/59
[2020-06-01] MEDS: INSULIN GLARGINE 100 UNITS/ML 10 ML VIAL SQ SCH (21:35)
[2020-06-01] MEDS: SIMVASTATIN 20 MG TABLET PO SCH (21:49)
[2020-06-01 23:45] VITALS: BP 133/69
[2020-06-02 04:03] VITALS: BP 119/61
[2020-06-02 05:22] LABS: HEMATOCRIT 30.1 % (36-48); MEAN CORPUSCULAR HEMOGLOBIN 26.8 pg (27.0-33.0); MEAN CORPUSCULAR HGB CONC 31.9 g/dL (32.0-36.0); MEAN CORPUSCULAR VOLUME 84.1 fL (79-99); RED BLOOD CELL COUNT(AUTO) 3.58 MIL/uL (4.00-5.50); RED CELL DISTRIBUTION WIDTH 14.4 % (11.0-15.5)
[2020-06-02 05:42] LABS: MAGNESIUM 1.2 mg/dL (1.80-2.40); POTASSIUM 3.6 mmol/L (3.5-5.1)
[2020-06-02] MEDS: LEVOTHYROXINE 112 MCG TABLET PO SCH (06:32)
[2020-06-02] MEDS: INSULIN HUMULIN R 100 UNIT/ML 3ML SQ SCH ×4 (06:33→21:20)
[2020-06-02 08:00] VITALS: BP 133/79
[2020-06-02] MEDS: BISACODYL 10 MG SUPP.RECT RC SCH (08:30)
[2020-06-02] MEDS: PANTOPRAZOLE 40 MG TAB DR PO SCH (09:20)
[2020-06-02] MEDS: GABAPENTIN 300 MG CAPSULE PO SCH ×2 (09:20→21:18)
[2020-06-02] MEDS: FUROSEMIDE 20 MG TABLET PO SCH (09:20)
[2020-06-02] MEDS: ASPIRIN 81MG CHEW TAB PO SCH (09:21)
[2020-06-02] MEDS: APIXABAN 5 MG TABLET PO SCH ×2 (09:21→21:17)
[2020-06-02] MEDS: NIFEDIPINE 10 MG CAP PO SCH ×3 (09:22→21:17)
[2020-06-02 11:46] VITALS: BP 140/60
[2020-06-02 16:00] VITALS: BP 126/70
[2020-06-02 20:24] VITALS: BP 120/74
[2020-06-02] MEDS: SIMVASTATIN 20 MG TABLET PO SCH (21:18)
[2020-06-02] MEDS: INSULIN GLARGINE 100 UNITS/ML 10 ML VIAL SQ SCH (21:21)
[2020-06-02] MEDS: ACETAMINOPHEN 325 MG TAB PO PRN (21:27)
[2020-06-02 23:40] VITALS: BP 132/74
[2020-06-03 01:32] LABS: APPEARANCE,URINE Turbid (CLEAR); BILIRUBIN,URINE Negative (NEGATIVE); COLOR,URINE Yellow (YELLOW); GLUCOSE, URINE (UA) 250 mg/dL (NEGATIVE); KETONES,URINE Trace mg/dL (NEGATIVE); LEUKOCYTE ESTERASE ,URINE Large (NEGATIVE); NITRATE,URINE Negative (NEGATIVE); OCCULT BLOOD,URINE Small (NEGATIVE); PROTEIN,URINE Trace mg/dL (NEGATIVE); UROBILINOGEN,URINE 0.2 mg/dL (0.2-1.0)
[2020-06-03 01:45] LABS: BACTERIA,URINE Many /HPF (None Seen); WBC,URINE TNTC /HPF (0-1)
[2020-06-03 03:45] VITALS: BP 120/73
[2020-06-03 04:22] LABS: HEMATOCRIT 27.4 % (36-48); MEAN CORPUSCULAR HGB CONC 32.5 g/dL (32.0-36.0); NUCLEATED RED BLOOD CELLS 0.2 % (0.0-0.19); RED BLOOD CELL COUNT(AUTO) 3.3 MIL/uL (4.00-5.50); RED CELL DISTRIBUTION WIDTH 14.3 % (11.0-15.5); WHITE BLOOD COUNT (AUTO) 9.2 K/uL (4.8-10.8)
[2020-06-03 04:30] LABS: CREATININE 1.1 mg/dL (0.5-1.5); MAGNESIUM 1.2 mg/dL (1.80-2.40); POTASSIUM 3.5 mmol/L (3.5-5.1)
[2020-06-03] MEDS: LEVOTHYROXINE 112 MCG TABLET PO SCH (06:22)
[2020-06-03] MEDS: INSULIN HUMULIN R 100 UNIT/ML 3ML SQ SCH ×3 (06:27→16:43)
[2020-06-03 07:57] VITALS: BP 133/83
[2020-06-03] MEDS: BISACODYL 10 MG SUPP.RECT RC SCH (08:30)
[2020-06-03] MEDS: ASPIRIN 81MG CHEW TAB PO SCH (09:15)
[2020-06-03] MEDS: GABAPENTIN 300 MG CAPSULE PO SCH (09:16)
[2020-06-03] MEDS: PANTOPRAZOLE 40 MG TAB DR PO SCH (09:16)
[2020-06-03] MEDS: APIXABAN 5 MG TABLET PO SCH (09:16)
[2020-06-03] MEDS: FUROSEMIDE 20 MG TABLET PO SCH (09:16)
[2020-06-03] MEDS: NIFEDIPINE 10 MG CAP PO SCH ×2 (09:16→14:25)
[2020-06-03 11:46] VITALS: BP 124/53
[2020-06-03 16:00] VITALS: BP 138/74
[2020-06-03] MEDS ORDERED: APIX5TAB PO (16:43)
[2020-09-09] MEDS ORDERED: ISOS30TA92 PO (14:13)
[2020-09-09] MEDS ORDERED: ASPI-1197 PO (14:13)
[2020-09-09] MEDS ORDERED: INSU100I35 SQ ×2 (14:13)
[2020-09-09] MEDS ORDERED: NITR0.4T50 SL (14:13)
[2020-09-09] MEDS ORDERED: GLIP10TA9 PO (14:13)
[2020-09-09] MEDS ORDERED: FENO160T16 PO (14:13)
[2020-09-09] MEDS ORDERED: METO200T49 PO (14:13)
[2020-09-09] MEDS ORDERED: METF-446 PO (14:13)
[2020-09-09] MEDS ORDERED: PREG100C PO (14:13)
== END 2020-06-03 17:49 | disposition home or self-care (01) | DRG 176 ==
LOC: EDH 21:28 → EDHIP 23:27 → OBSVTOIN 23:27 → 4CH 05-29 21:14
PROVIDERS: ADMIT Internal Medicine; ATTEND Internal Medicine
DX: I26.99 Other pulmonary embolism without acute cor pulmonale (principal); Z68.43 Body mass index [BMI] 50.0-59.9, adult; I24.8 Other forms of acute ischemic heart disease; I50.22 Chronic systolic (congestive) heart failure; I13.0 Hypertensive heart and chronic kidney disease with heart failure and stage 1 through stage 4 chronic kidney disease, or unspecified chronic kidney disease; E87.1 Hypo-osmolality and hyponatremia; E87.6 Hypokalemia; N18.30 Chronic kidney disease, stage 3 unspecified; E78.5 Hyperlipidemia, unspecified; E03.9 Hypothyroidism, unspecified; E11.22 Type 2 diabetes mellitus with diabetic chronic kidney disease; K21.9 Gastro-esophageal reflux disease without esophagitis; G47.33 Obstructive sleep apnea (adult) (pediatric); Z96.651 Presence of right artificial knee joint; E66.01 Morbid (severe) obesity due to excess calories; Z88.5 Allergy status to narcotic agent; Z79.4 Long term (current) use of insulin; Z79.01 Long term (current) use of anticoagulants; Z79.899 Other long term (current) drug therapy; Z87.891 Personal history of nicotine dependence; Z82.49 Family history of ischemic heart disease and other diseases of the circulatory system
CPT/HCPCS: 36415; 71045; 71275; 80048; 80053; 80061; 81001; 82550; 82948; 83036; 83735; 83880; 84443; 84484; 85025; 85027; 85378; 85610; 85730; 87077; 87088; 87186; 93005; 93306; 93356; 93970; 94760; 97039; G0378; J0780; J1644; J1650; J1815; J2405; J3475; J7040; Q9967

== ENCOUNTER → 2020-07-11 | Outpatient (CLI) | payer OTHER ==
[~2020-07-11] MED LIST changes: +APIX5TAB PO; +CELE-84 PO; +FOLI1TAB85 PO; +GABA600T10 PO; +METO10TA3 PO; -METO5TAB2 PO; +NITR0.4T50 SL; +OMEP40CA13 PO; -OMEP40CA21 PO
== END | disposition home or self-care (01) ==
LOC: RAH 13:21
PROVIDERS: ATTEND Family Medicine
DX: Z12.31 Encounter for screening mammogram for malignant neoplasm of breast (principal)
CPT/HCPCS: 77067

== ENCOUNTER 2020-09-10 05:52 | Observation (INO) | payer OTHER ==
[2020-09-08 09:28] LABS: BASOPHILS % (AUTO) 0.5 % (0.0-5.0); EOSINOPHILS % (AUTO) 2.8 % (0.0-8.0); HEMATOCRIT 33.7 % (36-48); LYMPHOCYTES % (AUTO) 25.7 % (21.0-51.0); MEAN CORPUSCULAR HEMOGLOBIN 25.7 pg (27.0-33.0); MEAN CORPUSCULAR HGB CONC 31.5 g/dL (32.0-36.0); MEAN CORPUSCULAR VOLUME 81.8 fL (79-99); MONOCYTES % (AUTO) 6.4 % (3.0-13.0); NEUTROPHILS % (AUTO) 64.1 % (40.0-77.0); PLATELET COUNT (AUTO) 376 K/uL (130-400); RED BLOOD CELL COUNT(AUTO) 4.12 MIL/uL (4.00-5.50); RED CELL DISTRIBUTION WIDTH 15.5 % (11.0-15.5)
[2020-09-08 09:37] LABS: CREATININE 1.3 mg/dL (0.5-1.5); POTASSIUM 4.9 mmol/L (3.5-5.1)
[2020-09-08 09:55] LABS: APPEARANCE,URINE Clear (CLEAR); BILIRUBIN,URINE Negative (NEGATIVE); COLOR,URINE Yellow (YELLOW); GLUCOSE, URINE (UA) Negative (NEGATIVE); KETONES,URINE Negative (NEGATIVE); LEUKOCYTE ESTERASE ,URINE Moderate (NEGATIVE); NITRATE,URINE Positive (NEGATIVE); OCCULT BLOOD,URINE Negative (NEGATIVE); PROTEIN,URINE Negative (NEGATIVE)
[2020-09-08 10:11] LABS: BACTERIA,URINE Many /HPF (None Seen); RBC,URINE 0-1 /HPF (0-1); SQUAMOUS EPITHELIAL CELL,UR Rare /HPF (0-2)
[2020-09-08 10:20] LABS: PROTHROMBIN TIME 10.9 SEC (9.6-11.6)
[2020-09-08 10:22] LABS: PARTIAL THROMBOPLASTIN TIME 54.4 SEC (26.3-35.5)
[2020-09-09 12:15] VITALS: BP 166/73
[2020-09-10] VITALS (15 sets, daily range): BP systolic 112–157; BP diastolic 56–83
[~2020-09-10] VITALS: Ht 154.9 cm; Wt 125.0 kg
[~2020-09-10 05:52] MED LIST changes: +ASPI-1197 PO; -ASPI-556 PO; -BACL10TA PO; -BIMA12.5OS OU; -CELE-84 PO; -FOLI1TAB85 PO; -FURO20TA4 PO; -GABA-531 PO; +INSU100I35 SQ; +ISOS30TA92 PO; -LISI40TA9 PO; -OLME40TA18 PO; -SPIR25TA6 PO; -SUCR1TAB2 PO; -TRAM50TA4 PO
[2020-09-10] MEDS ORDERED: SODIUM CHLORIDE 0.9% 1000ML 1,000 ML IV ONE (06:09)
[2020-09-10] MEDS ORDERED: LIDOCAINE HCL 2% 20ML ONE (08:34)
[2020-09-10] MEDS ORDERED: MIDAZOLAM HCL 1 MG/ML 2ML VIAL ONE (08:34)
[2020-09-10] MEDS ORDERED: NITROGLYCERIN 2 MG/VIAL VIAL IV ONE (08:34)
[2020-09-10] MEDS ORDERED: IOHEXOL-350 50ML VIAL IV ONE (08:34)
[2020-09-10] MEDS ORDERED: BIVALIRUDIN 250 MG/VIAL IV ONE (08:34)
[2020-09-10] MEDS ORDERED: IOHEXOL 350 MG/ML 100ML INFUS..BTL IV ONE (08:34)
[2020-09-10] MEDS ORDERED: CEFAZOLIN SODIUM 1 GM VIAL ONE (08:48)
[2020-09-10] MEDS ORDERED: CEFAZOLIN SODIUM 1 GM VIAL IVP SCH (09:00)
[2020-09-10] MEDS ORDERED: FENTANYL CITRATE PF 50 MCG/1 ML 2ML VIAL ONE (12:56)
[2020-09-10] MEDS ORDERED: PRASUGREL HCL 10 MG TABLET ONE ×2 (13:18→13:19)
[2020-09-10] MEDS ORDERED: ASPIRIN 325MG EC TAB 325 MG TABLET.DR PO ONE (13:22)
[2020-09-10] MEDS ORDERED: NITROGLYCERIN 0.4 MG SL TAB SL PRN (14:00)
[2020-09-10] MEDS ORDERED: SODIUM CHLORIDE 0.9% 1000ML 1,000 ML IV SCH (14:00)
[2020-09-10] MEDS ORDERED: DEXTROSE 50%-WATER 50 ML DISP.SYRIN IV PRN (14:00)
[2020-09-10] MEDS ORDERED: GABAPENTIN 300 MG CAPSULE PO PRN (14:00)
[2020-09-10] MEDS ORDERED: ONDANSETRON HCL 4 MG/2 ML VIAL IVP PRN (14:00)
[2020-09-10] MEDS ORDERED: GLUCAGON 1MG KIT 1 MG ML IM PRN (14:00)
[2020-09-10] MEDS: METOCLOPRAMIDE 10 MG TABLET PO SCH ×2 (16:00→21:46)
[2020-09-10] MEDS: PREGABALIN 100 MG CAPSULE PO SCH ×2 (16:29→21:46)
[2020-09-10] MEDS: INSULIN HUMULIN R 100 UNIT/ML 3ML SQ SCH ×2 (16:30→22:04)
[2020-09-10] MEDS: ACETAMINOPHEN 325 MG TAB PO PRN (16:56)
[2020-09-10] MEDS ORDERED: PHARMACY COMMUNICATION MISC SCH (17:15)
[2020-09-10] MEDS: CEPHALEXIN 500 MG CAPSULE PO SCH (18:41)
[2020-09-10] MEDS ORDERED: MAG-156 PO (20:07)
[2020-09-10] MEDS ORDERED: [UNRECOGNIZED DRUG - OTHER] SQ SCH (21:00)
[2020-09-10] MEDS ORDERED: NON-FORMULARY MEDICATION 1 EACH (Simvastatin 40 MG) PO SCH (21:00)
[2020-09-10] MEDS ORDERED: GLIPIZIDE 5 MG TABLET PO SCH (21:00)
[2020-09-10] MEDS ORDERED: METOPROLOL SUCCINATE 50 MG TAB.SR.24H PO SCH (21:00)
[2020-09-10] MEDS ORDERED: NON-FORMULARY MEDICATION 1 EACH (Metoprolol Succinate 200 MG) PO SCH (21:00)
[2020-09-10] MEDS ORDERED: REG INSULIN SQ SCH (21:00)
[2020-09-10] MEDS ORDERED: NON-FORMULARY MEDICATION 1 EACH (Glipizide 10 MG) PO SCH (21:00)
[2020-09-10] MEDS ORDERED: SIMVASTATIN 20 MG TABLET PO SCH (21:00)
[2020-09-10] MEDS ORDERED: INSULIN NPH HUM SQ SCH (21:00)
[2020-09-10] MEDS: MAG HYDROX/AL HYDROX/SIMETH ES 30 ML SUSP UDCUP PO PRN (21:47)
[2020-09-10] MEDS: INSULIN NPH 100 UNIT/ML 3ML SQ SCH (22:03)
[2020-09-11 00:17] VITALS: BP 130/61
[2020-09-11] MEDS: MAG HYDROX/AL HYDROX/SIMETH ES 30 ML SUSP UDCUP PO PRN (03:33)
[2020-09-11 04:00] VITALS: BP 149/65
[2020-09-11 04:16] LABS: HEMATOCRIT 30.1 % (36-48); MEAN CORPUSCULAR HEMOGLOBIN 25.6 pg (27.0-33.0); MEAN CORPUSCULAR HGB CONC 31.9 g/dL (32.0-36.0); MEAN CORPUSCULAR VOLUME 80.3 fL (79-99); RED BLOOD CELL COUNT(AUTO) 3.75 MIL/uL (4.00-5.50); RED CELL DISTRIBUTION WIDTH 15.8 % (11.0-15.5); WHITE BLOOD COUNT (AUTO) 8.1 K/uL (4.8-10.8)
[2020-09-11 04:34] LABS: CREATININE 1.1 mg/dL (0.5-1.5); POTASSIUM 3.8 mmol/L (3.5-5.1)
[2020-09-11] MEDS ORDERED: LEVOTHYROXINE 112 MCG TABLET ONE (05:08)
[2020-09-11] MEDS: CEPHALEXIN 500 MG CAPSULE PO SCH (06:07)
[2020-09-11] MEDS: INSULIN HUMULIN R 100 UNIT/ML 3ML SQ SCH ×2 (06:09→11:45)
[2020-09-11] MEDS: ACETAMINOPHEN 325 MG TAB PO PRN (06:09)
[2020-09-11] MEDS ORDERED: LEVOTHYROXINE 112 MCG TABLET PO SCH (07:30)
[2020-09-11] MEDS: METOCLOPRAMIDE 10 MG TABLET PO SCH (08:25)
[2020-09-11] MEDS: PREGABALIN 100 MG CAPSULE PO SCH (08:37)
[2020-09-11] MEDS: INSULIN NPH 100 UNIT/ML 3ML SQ SCH (08:37)
[2020-09-11 08:45] VITALS: BP 152/76
[2020-09-11] MEDS ORDERED: PRAS10TA9 PO (08:47)
[2020-09-11] MEDS ORDERED: CEPH500B PO (08:59)
[2020-09-11] MEDS ORDERED: REG INSULIN SQ SCH (09:00)
[2020-09-11] MEDS ORDERED: INSULIN NPH HUM SQ SCH (09:00)
[2020-09-11] MEDS ORDERED: NIFEDIPINE 90 MG PO SCH (09:00)
[2020-09-11] MEDS ORDERED: PANTOPRAZOLE SODIUM 40 MG TABLET.DR PO SCH (09:00)
[2020-09-11] MEDS ORDERED: FENOFIBRATE NANOCRYSTALLIZED 145 MG TAB PO SCH (09:00)
[2020-09-11] MEDS ORDERED: NON-FORMULARY MEDICATION 1 EACH (Omeprazole 40 MG) PO SCH (09:00)
[2020-09-11] MEDS ORDERED: [UNRECOGNIZED DRUG - OTHER] SQ SCH (09:00)
[2020-09-11] MEDS ORDERED: NIFEDIPINE ER 30 MG TAB PO SCH (09:00)
[2020-09-11] MEDS ORDERED: PRASUGREL HCL 10 MG TABLET PO SCH (09:00)
[2020-09-11] MEDS ORDERED: ASPIRIN 81MG TAB.CHEW PO SCH (09:00)
[2020-09-11 12:05] VITALS: BP 179/73
== END 2020-09-11 14:41 | disposition home or self-care (01) ==
LOC: DAH 05:52 → DAHIP 05:53 → 4BH 17:31
PROVIDERS: ADMIT Family Medicine; ATTEND Family Medicine
DX: I25.110 Atherosclerotic heart disease of native coronary artery with unstable angina pectoris (principal); I11.0 Hypertensive heart disease with heart failure; I50.32 Chronic diastolic (congestive) heart failure; E11.59 Type 2 diabetes mellitus with other circulatory complications; E66.01 Morbid (severe) obesity due to excess calories; G47.30 Sleep apnea, unspecified; E78.2 Mixed hyperlipidemia; N39.0 Urinary tract infection, site not specified; B96.1 Klebsiella pneumoniae [K. pneumoniae] as the cause of diseases classified elsewhere; Z86.711 Personal history of pulmonary embolism; Z91.19 Patient's noncompliance with other medical treatment and regimen; Z95.5 Presence of coronary angioplasty implant and graft; Z96.651 Presence of right artificial knee joint; Z79.01 Long term (current) use of anticoagulants; Z79.899 Other long term (current) drug therapy; Z68.43 Body mass index [BMI] 50.0-59.9, adult
CPT/HCPCS: 36415 ×2; 71045; 80048 ×2; 80061; 81001; 82948 ×5; 85025; 85027; 85610; 85730; 87077; 87088; 87186; 93005 ×2; 93458; 96360; 96361 ×2; 96372 ×2; A4215; A4216; A4221; A4222; A4223 ×3; A4606; A4663; C1760; C1769; C1874; C1887; C1894 ×2; C9600; G0378 ×25; J0583; J0690; J1644; J1815 ×4; J3010; J3490 ×2; J7030; Q9965 ×2; Q9967 ×2; J2250

== ENCOUNTER → 2020-11-20 | Outpatient (CLI) | payer OTHER ==
[~2020-11-20] MED LIST changes: -APIX5TAB PO; +CEPH500B PO; -ISOS30TA92 PO; +MAG-156 PO; -NITR0.4T50 SL; -OMEP40CA13 PO; +OMEP40CA21 PO; +PRAS10TA9 PO; -PREG100C PO
== END | disposition home or self-care (01) ==
LOC: RAH 15:02
PROVIDERS: ATTEND Family Medicine
DX: N30.00 Acute cystitis without hematuria (principal); N39.41 Urge incontinence; E11.22 Type 2 diabetes mellitus with diabetic chronic kidney disease; R33.9 Retention of urine, unspecified
CPT/HCPCS: 76770

== ENCOUNTER 2021-09-04 13:52 | Inpatient (IN) | payer OTHER ==
[~2021-09-04] VITALS: Ht 157.5 cm; Wt 125.2 kg
[2021-09-04 14:28] LABS: HEMATOCRIT 28.4 % (36-48); MEAN CORPUSCULAR HEMOGLOBIN 24.9 pg (27.0-33.0); MEAN CORPUSCULAR VOLUME 80.2 fL (79-99); PLATELET COUNT (AUTO) 303 K/uL (130-400); RED BLOOD CELL COUNT(AUTO) 3.54 MIL/uL (4.00-5.50); RED CELL DISTRIBUTION WIDTH 15.6 % (11.0-15.5); WHITE BLOOD COUNT (AUTO) 9.1 K/uL (4.8-10.8)
[2021-09-04 14:47] LABS: CREATININE 1.4 mg/dL (0.5-1.5); POTASSIUM 5.1 mmol/L (3.5-5.1)
[2021-09-04 14:56] LABS: ALBUMIN 2.8 g/dL (3.5-5.0); BILIRUBIN,TOTAL 0.2 mg/dL (0.2-1.0); TOTAL PROTEIN, SERUM 6.3 g/dL (6.0-8.3)
[2021-09-04 15:10] LABS: EOSINOPHILS % (MANUAL) 1 % (1-6); LYMPHOCYTES % (MANUAL) 14 % (22-44); MONOCYTES % (MANUAL) 6 % (2-9); SEGMENTED NEUTROPHILS % 79 % (40-70)
[2021-09-04 15:11] LABS: MAN.DIFF COMMENT-IMPRESSION MANUAL DIFFERENTIAL; PLATELET MORPHOLOGY COMMENT ADEQUATE
[2021-09-04] MEDS ORDERED: ASPIRIN 81MG CHEW TAB ONE (15:27)
[2021-09-04] MEDS ORDERED: NITROGLYCERIN 1GM OINT 1 INCH/1GM TD ONE ×2 (15:27→15:30)
[2021-09-04] MEDS ORDERED: NITROGLYCERIN 1GM OINT 1 INCH/1GM TD PRN (15:30)
[2021-09-04] MEDS: ARTIFICAL TEARS SOL 15 ML OU SCH ×2 (15:30→21:27)
[2021-09-04] MEDS ORDERED: ALBUTEROL 0.083% 2.5 MG/3 ML INH IH PRN (15:30)
[2021-09-04] MEDS ORDERED: LACTULOSE 20 GM/30 ML UDCUP PO PRN (15:30)
[2021-09-04] MEDS ORDERED: ACETAMINOPHEN 325 MG TAB PO PRN (15:30)
[2021-09-04] MEDS ORDERED: ONDANSETRON 4MG INJ IVP PRN (15:30)
[2021-09-04] MEDS ORDERED: ASPIRIN 81MG CHEW TAB PO ONE (15:30)
[2021-09-04] MEDS ORDERED: HYDRALAZINE 20MG/ML VIAL IV PRN (15:30)
[2021-09-04] MEDS ORDERED: LABETALOL 20MG SYG IV PRN (15:30)
[2021-09-04] MEDS: INSULIN HUMULIN R 100 UNIT/ML 3ML SQ SCH ×2 (16:30→21:10)
[2021-09-04 18:44] LABS: APPEARANCE,URINE Clear (CLEAR); BILIRUBIN,URINE Negative (NEGATIVE); COLOR,URINE Yellow (YELLOW); GLUCOSE, URINE (UA) 500 mg/dL (NEGATIVE); KETONES,URINE Trace mg/dL (NEGATIVE); LEUKOCYTE ESTERASE ,URINE Moderate (NEGATIVE); NITRATE,URINE Negative (NEGATIVE); OCCULT BLOOD,URINE Negative (NEGATIVE); PH,URINE 5.5 (5.0-8.0); PROTEIN,URINE Negative (NEGATIVE); UROBILINOGEN,URINE 0.2 mg/dL (0.2-1.0)
[2021-09-04 19:11] LABS: BACTERIA,URINE Many /HPF (None Seen); RBC,URINE None Seen /HPF (0-1); SQUAMOUS EPITHELIAL CELL,UR None Seen /HPF (0-2)
[2021-09-04 19:44] VITALS: BP 132/71
[2021-09-04 19:45] VITALS: BP 87/48
[2021-09-04] MEDS: SIMVASTATIN 20 MG TABLET PO SCH (21:07)
[2021-09-04] MEDS: METOPROLOL TARTRATE 25 MG TAB PO SCH (21:07)
[2021-09-04] MEDS: ENOXAPARIN SODIUM 120 MG/0.8ML SQ SCH (21:08)
[2021-09-04] MEDS ORDERED: SPIR25TA6 PO (22:05)
[2021-09-04] MEDS ORDERED: LABE200T5 PO (22:05)
[2021-09-04] MEDS ORDERED: OLME40TA18 PO (22:05)
[2021-09-04] MEDS ORDERED: GABA800T9 PO (22:05)
[2021-09-04] MEDS ORDERED: FENO48TA10 PO (22:05)
[2021-09-04] MEDS ORDERED: TAMS-1 PO (22:05)
[2021-09-04] MEDS ORDERED: FLUT1BLS3 IH (22:05)
[2021-09-04] MEDS ORDERED: ISOS60TA77 PO (22:05)
[2021-09-04] MEDS ORDERED: FOLI0.8T22 PO (22:05)
[2021-09-04] MEDS ORDERED: PROG200C11 PO (22:05)
[2021-09-04 23:35] VITALS: BP 123/61
[2021-09-05] MEDS: ARTIFICAL TEARS SOL 15 ML OU SCH ×4 (02:41→20:36)
[2021-09-05 03:28] VITALS: BP 145/68
[2021-09-05 03:32] LABS: BASOPHILS % (AUTO) 0.1 % (0.0-5.0); EOSINOPHILS % (AUTO) 0.4 % (0.0-8.0); HEMATOCRIT 27.4 % (36-48); LYMPHOCYTES % (AUTO) 14.2 % (21.0-51.0); MEAN CORPUSCULAR HEMOGLOBIN 24.6 pg (27.0-33.0); MEAN CORPUSCULAR HGB CONC 31.4 g/dL (32.0-36.0); MEAN CORPUSCULAR VOLUME 78.3 fL (79-99); MONOCYTES % (AUTO) 6.5 % (3.0-13.0); NEUTROPHILS % (AUTO) 78.2 % (40.0-77.0); PLATELET COUNT (AUTO) 299 K/uL (130-400); RED CELL DISTRIBUTION WIDTH 15.7 % (11.0-15.5)
[2021-09-05 03:54] LABS: CREATININE 1.3 mg/dL (0.5-1.5); MAGNESIUM 1.2 mg/dL (1.80-2.40); PHOSPHORUS 3.3 mg/dL (2.5-4.9); POTASSIUM 5.4 mmol/L (3.5-5.1)
[2021-09-05] MEDS: INSULIN HUMULIN R 100 UNIT/ML 3ML SQ SCH ×4 (06:37→20:38)
[2021-09-05 08:00] VITALS: BP 142/71
[2021-09-05] MEDS: ASPIRIN 81MG CHEW TAB PO SCH (08:08)
[2021-09-05] MEDS: METOPROLOL TARTRATE 25 MG TAB PO SCH ×2 (08:08→20:35)
[2021-09-05] MEDS: PANTOPRAZOLE 40 MG TAB DR PO SCH (08:08)
[2021-09-05] MEDS: ENOXAPARIN SODIUM 120 MG/0.8ML SQ SCH ×2 (08:13→20:36)
[2021-09-05] MEDS ORDERED: IOHEXOL-350 75 ML VIAL IV ONE (09:43)
[2021-09-05 12:00] VITALS: BP 134/78
[2021-09-05] MEDS ORDERED: DIPHENHYDRAMINE HCL 25 MG CAPSULE PO PRN (13:30)
[2021-09-05] MEDS ORDERED: ZOSYN 3.375GM +NS 50ML IV SCH (13:30)
[2021-09-05 16:00] VITALS: BP 142/76
[2021-09-05] MEDS ORDERED: KAYEXALATE 15GM/60ML PO PRN ×2 (16:30→20:00)
[2021-09-05] MEDS ORDERED: 0.9%NACL 50ML 50 ML IV ONE (16:37)
[2021-09-05] MEDS: ZOSYN 3.375GM +NS 50ML IV SCH (16:46)
[2021-09-05 20:05] VITALS: BP 144/54
[2021-09-05] MEDS: SIMVASTATIN 20 MG TABLET PO SCH (20:35)
[2021-09-05] MEDS: INSULIN GLARGINE 100 UNITS/ML 10 ML VIAL SQ SCH (20:39)
[2021-09-05 21:01] LABS: ABG BASE EXCESS -1.7 mmol/L (-2.0-3.0); ABG HCO3 22.5 mmol/L (21.0-28.0); ABG OXYGEN SATURATION 91.7 % (95.0-99.0); ABG PCO2 37 mmHg (32-45)
[2021-09-05 23:55] VITALS: BP 151/71
[2021-09-06] MEDS: ARTIFICAL TEARS SOL 15 ML OU SCH ×4 (03:44→20:52)
[2021-09-06 04:00] VITALS: BP 155/62
[2021-09-06 04:08] LABS: BASOPHILS % (AUTO) 0.5 % (0.0-5.0); EOSINOPHILS % (AUTO) 5.7 % (0.0-8.0); HEMATOCRIT 28.1 % (36-48); LYMPHOCYTES % (AUTO) 24.4 % (21.0-51.0); MEAN CORPUSCULAR HEMOGLOBIN 25.6 pg (27.0-33.0); MEAN CORPUSCULAR HGB CONC 32.4 g/dL (32.0-36.0); MEAN CORPUSCULAR VOLUME 78.9 fL (79-99); MONOCYTES % (AUTO) 8.8 % (3.0-13.0); PLATELET COUNT (AUTO) 316 K/uL (130-400); RED BLOOD CELL COUNT(AUTO) 3.56 MIL/uL (4.00-5.50); RED CELL DISTRIBUTION WIDTH 15.9 % (11.0-15.5); WHITE BLOOD COUNT (AUTO) 6.5 K/uL (4.8-10.8)
[2021-09-06 04:43] LABS: ALBUMIN 3.1 g/dL (3.5-5.0); BILIRUBIN,TOTAL 0.2 mg/dL (0.2-1.0); CREATININE 1.1 mg/dL (0.5-1.5); MAGNESIUM 1.5 mg/dL (1.80-2.40); POTASSIUM 4.6 mmol/L (3.5-5.1); THYROID STIMULATING HORMONE 6.1 uIU/mL (0.36-3.74); TOTAL PROTEIN, SERUM 6.5 g/dL (6.0-8.3)
[2021-09-06] MEDS ORDERED: 0.9%NACL 50ML 50 ML IV ONE (05:10)
[2021-09-06] MEDS: LEVOTHYROXINE 112 MCG TABLET PO SCH (05:15)
[2021-09-06] MEDS: ZOSYN 3.375GM +NS 50ML IV SCH ×2 (05:15→20:51)
[2021-09-06] MEDS: INSULIN GLARGINE 100 UNITS/ML 10 ML VIAL SQ SCH ×2 (06:22→22:02)
[2021-09-06] MEDS: INSULIN HUMULIN R 100 UNIT/ML 3ML SQ SCH ×4 (06:23→22:01)
[2021-09-06 07:00] VITALS: BP 136/78
[2021-09-06] MEDS: ASPIRIN 81MG CHEW TAB PO SCH (08:07)
[2021-09-06] MEDS: ENOXAPARIN SODIUM 120 MG/0.8ML SQ SCH ×2 (08:10→20:52)
[2021-09-06] MEDS: PANTOPRAZOLE 40 MG TAB DR PO SCH (08:10)
[2021-09-06] MEDS: METOPROLOL TARTRATE 25 MG TAB PO SCH ×2 (08:10→20:51)
[2021-09-06 12:00] VITALS: BP 122/68
[2021-09-06 15:58] VITALS: BP 117/78
[2021-09-06 20:11] VITALS: BP 144/73
[2021-09-06] MEDS: SIMVASTATIN 20 MG TABLET PO SCH (20:51)
[2021-09-06 23:49] VITALS: BP 143/70
[2021-09-07] MEDS: ARTIFICAL TEARS SOL 15 ML OU SCH ×4 (02:42→20:50)
[2021-09-07 04:26] LABS: BASOPHILS % (AUTO) 0.7 % (0.0-5.0); EOSINOPHILS % (AUTO) 3.8 % (0.0-8.0); HEMATOCRIT 29.3 % (36-48); LYMPHOCYTES % (AUTO) 22.7 % (21.0-51.0); MEAN CORPUSCULAR HEMOGLOBIN 24.4 pg (27.0-33.0); MEAN CORPUSCULAR HGB CONC 31.1 g/dL (32.0-36.0); MEAN CORPUSCULAR VOLUME 78.6 fL (79-99); MONOCYTES % (AUTO) 8.7 % (3.0-13.0); NEUTROPHILS % (AUTO) 63.4 % (40.0-77.0); PLATELET COUNT (AUTO) 307 K/uL (130-400); RED BLOOD CELL COUNT(AUTO) 3.73 MIL/uL (4.00-5.50); RED CELL DISTRIBUTION WIDTH 15.6 % (11.0-15.5); WHITE BLOOD COUNT (AUTO) 6.1 K/uL (4.8-10.8)
[2021-09-07 04:45] VITALS: BP 148/63
[2021-09-07 04:45] LABS: ALBUMIN 3.1 g/dL (3.5-5.0); BILIRUBIN,TOTAL 0.3 mg/dL (0.2-1.0); CREATININE 1.1 mg/dL (0.5-1.5); POTASSIUM 4.3 mmol/L (3.5-5.1); TOTAL PROTEIN, SERUM 6.6 g/dL (6.0-8.3)
[2021-09-07] MEDS: LEVOTHYROXINE 112 MCG TABLET PO SCH (05:46)
[2021-09-07] MEDS: INSULIN GLARGINE 100 UNITS/ML 10 ML VIAL SQ SCH ×2 (05:47→20:49)
[2021-09-07] MEDS: INSULIN HUMULIN R 100 UNIT/ML 3ML SQ SCH ×4 (05:48→20:48)
[2021-09-07 08:00] VITALS: BP 145/72
[2021-09-07] MEDS: ZOSYN 3.375GM +NS 50ML IV SCH ×2 (08:48→20:49)
[2021-09-07] MEDS: ASPIRIN 81MG CHEW TAB PO SCH (08:49)
[2021-09-07] MEDS: ENOXAPARIN SODIUM 120 MG/0.8ML SQ SCH ×2 (08:49→20:50)
[2021-09-07] MEDS: METOPROLOL TARTRATE 25 MG TAB PO SCH ×2 (08:49→20:49)
[2021-09-07] MEDS: PANTOPRAZOLE 40 MG TAB DR PO SCH (08:49)
[2021-09-07 12:24] VITALS: BP 154/78
[2021-09-07 16:00] VITALS: BP 147/71
[2021-09-07] MEDS ORDERED: PRASUGREL HCL 10 MG TABLET PO SCH (17:30)
[2021-09-07 19:15] VITALS: BP 142/59
[2021-09-07] MEDS: SIMVASTATIN 20 MG TABLET PO SCH (20:49)
[2021-09-07 23:01] VITALS: BP 143/64
[2021-09-08] VITALS (12 sets, daily range): BP systolic 125–157; BP diastolic 50–74
[2021-09-08] MEDS: ARTIFICAL TEARS SOL 15 ML OU SCH ×4 (03:30→20:44)
[2021-09-08 03:35] LABS: BASOPHILS % (AUTO) 0.4 % (0.0-5.0); EOSINOPHILS % (AUTO) 2.8 % (0.0-8.0); LYMPHOCYTES % (AUTO) 22.2 % (21.0-51.0); MEAN CORPUSCULAR HEMOGLOBIN 24.7 pg (27.0-33.0); MEAN CORPUSCULAR HGB CONC 31.8 g/dL (32.0-36.0); MEAN CORPUSCULAR VOLUME 77.8 fL (79-99); MONOCYTES % (AUTO) 8.4 % (3.0-13.0); NEUTROPHILS % (AUTO) 65.6 % (40.0-77.0); PLATELET COUNT (AUTO) 266 K/uL (130-400); RED CELL DISTRIBUTION WIDTH 15.1 % (11.0-15.5); WHITE BLOOD COUNT (AUTO) 7.1 K/uL (4.8-10.8)
[2021-09-08 03:47] LABS: INR 0.95 (0.85-1.15); PROTHROMBIN TIME 10.4 SEC (9.6-11.6)
[2021-09-08 03:48] LABS: PARTIAL THROMBOPLASTIN TIME 29.5 SEC (26.3-35.5)
[2021-09-08 04:03] LABS: ALBUMIN 3.1 g/dL (3.5-5.0); BILIRUBIN,TOTAL 0.3 mg/dL (0.2-1.0); CREATININE 1.3 mg/dL (0.5-1.5); POTASSIUM 4.2 mmol/L (3.5-5.1); TOTAL PROTEIN, SERUM 6.5 g/dL (6.0-8.3)
[2021-09-08] MEDS: INSULIN HUMULIN R 100 UNIT/ML 3ML SQ SCH ×4 (05:46→20:38)
[2021-09-08] MEDS: LEVOTHYROXINE 112 MCG TABLET PO SCH (05:46)
[2021-09-08] MEDS: INSULIN GLARGINE 100 UNITS/ML 10 ML VIAL SQ SCH ×2 (05:47→20:39)
[2021-09-08] MEDS: ENOXAPARIN SODIUM 120 MG/0.8ML SQ SCH (07:40)
[2021-09-08] MEDS: PRASUGREL HCL 10 MG TABLET PO SCH (09:02)
[2021-09-08] MEDS: METOPROLOL TARTRATE 25 MG TAB PO SCH (09:02)
[2021-09-08] MEDS: PANTOPRAZOLE 40 MG TAB DR PO SCH (09:03)
[2021-09-08] MEDS: ASPIRIN 81MG CHEW TAB PO SCH (09:06)
[2021-09-08] MEDS: ZOSYN 3.375GM +NS 50ML IV SCH ×2 (09:06→20:36)
[2021-09-08] MEDS: IRON SUCROSE COMPLEX 100 MG/5 ML VIAL IVP SCH (09:45)
[2021-09-08] MEDS ORDERED: IOHEXOL 350 MG/ML 100ML INFUS..BTL IV ONE (10:02)
[2021-09-08] MEDS ORDERED: LIDOCAINE HCL 1% 20 ML VIAL ONE (10:02)
[2021-09-08] MEDS ORDERED: BIVALIRUDIN 250 MG/VIAL IV ONE (10:02)
[2021-09-08] MEDS ORDERED: NITROGLYCERIN 50MG VIAL ONE (10:02)
[2021-09-08] MEDS ORDERED: HEPARIN 10,000 UNIT/10ML (1,000 UNIT/ML) VIAL ONE ×2 (10:02→11:11)
[2021-09-08] MEDS ORDERED: IOHEXOL-350 50ML VIAL IV ONE (10:02)
[2021-09-08] MEDS ORDERED: MIDAZOLAM HCL 1 MG/ML 2ML VIAL ONE (10:03)
[2021-09-08] MEDS ORDERED: FENTANYL CITRATE PF 50 MCG/1 ML 2ML VIAL ONE (10:03)
[2021-09-08] MEDS ORDERED: NICARDIPINE 25MG INJ IV ONE (10:35)
[2021-09-08] MEDS ORDERED: MORPHINE 2 MG SYG ONE ×2 (11:00→11:34)
[2021-09-08] MEDS ORDERED: CLOPIDOGREL 300MG TAB ONE (11:20)
[2021-09-08] MEDS ORDERED: HEPARIN 1,000 UNIT VIAL ONE (11:51)
[2021-09-08] MEDS ORDERED: 0.9%NACL 1000ML 1,000 ML IV SCH (12:00)
[2021-09-08] MEDS ORDERED: ACETAMINOPHEN WITH CODEINE 1 TAB TAB PO PRN ×2 (12:00)
[2021-09-08] MEDS ORDERED: ONDANSETRON 4MG INJ IVP PRN (12:00)
[2021-09-08] MEDS ORDERED: NITROGLYCERIN 1GM OINT 1 INCH/1GM TD PRN (12:30)
[2021-09-08 13:38] LABS: % IRON SATURATION 16.1 % (22-44)
[2021-09-08] MEDS ORDERED: 0.9%NACL 50ML 50 ML IV ONE (20:21)
[2021-09-08] MEDS: SIMVASTATIN 20 MG TABLET PO SCH (20:36)
[2021-09-08] MEDS: METOPROLOL TARTRATE 50 MG TAB PO SCH (20:36)
[2021-09-09 03:22] VITALS: BP 177/80
[2021-09-09] MEDS: ARTIFICAL TEARS SOL 15 ML OU SCH ×2 (03:50→09:30)
[2021-09-09 05:13] LABS: BASOPHILS % (AUTO) 0.4 % (0.0-5.0); EOSINOPHILS % (AUTO) 2.1 % (0.0-8.0); HEMATOCRIT 28.7 % (36-48); MEAN CORPUSCULAR HEMOGLOBIN 25.8 pg (27.0-33.0); MEAN CORPUSCULAR HGB CONC 32.4 g/dL (32.0-36.0); MEAN CORPUSCULAR VOLUME 79.5 fL (79-99); MONOCYTES % (AUTO) 7.9 % (3.0-13.0); NEUTROPHILS % (AUTO) 69.8 % (40.0-77.0); PLATELET COUNT (AUTO) 270 K/uL (130-400); RED BLOOD CELL COUNT(AUTO) 3.61 MIL/uL (4.00-5.50); RED CELL DISTRIBUTION WIDTH 15.4 % (11.0-15.5); WHITE BLOOD COUNT (AUTO) 7.3 K/uL (4.8-10.8)
[2021-09-09 05:22] LABS: BILIRUBIN,TOTAL 0.3 mg/dL (0.2-1.0); MAGNESIUM 1.2 mg/dL (1.80-2.40); PHOSPHORUS 3.9 mg/dL (2.5-4.9); TOTAL PROTEIN, SERUM 6.4 g/dL (6.0-8.3)
[2021-09-09] MEDS: INSULIN HUMULIN R 100 UNIT/ML 3ML SQ SCH ×3 (05:34→17:32)
[2021-09-09] MEDS: LEVOTHYROXINE 112 MCG TABLET PO SCH (05:35)
[2021-09-09] MEDS: INSULIN GLARGINE 100 UNITS/ML 10 ML VIAL SQ SCH (05:50)
[2021-09-09 07:00] VITALS: BP 133/67
[2021-09-09] MEDS ORDERED: CLOP75TA14 PO (08:46)
[2021-09-09] MEDS ORDERED: IRON SUCROSE COMPLEX 100 MG in 0.9%NACL 50ML 50 ML IV SCH (09:00)
[2021-09-09] MEDS ORDERED: ENOXAPARIN SODIUM 40 MG/0.4 ML SYRINGE SQ SCH (09:00)
[2021-09-09] MEDS ORDERED: METO50TA18 PO (09:01)
[2021-09-09] MEDS ORDERED: DOCU100T PO (09:05)
[2021-09-09] MEDS ORDERED: FE F1CAP33 PO (09:05)
[2021-09-09] MEDS ORDERED: 0.9%NACL 50ML 50 ML IV ONE (10:47)
[2021-09-09] MEDS: IRON SUCROSE COMPLEX 100 MG/5 ML VIAL IVP SCH (10:49)
[2021-09-09] MEDS: PANTOPRAZOLE 40 MG TAB DR PO SCH (10:49)
[2021-09-09] MEDS: METOPROLOL TARTRATE 50 MG TAB PO SCH (10:49)
[2021-09-09] MEDS: ASPIRIN 81MG CHEW TAB PO SCH (10:49)
[2021-09-09] MEDS: PRASUGREL HCL 10 MG TABLET PO SCH (10:49)
[2021-09-09] MEDS: MAGNESIUM 2GM PREMIX 50ML 50 ML IV PRN ×2 (10:51→12:59)
[2021-09-09 11:00] VITALS: BP 148/73
[2021-09-09] MEDS ORDERED: MAGNESIUM 2GM PREMIX 50ML 50 ML IV PRN (11:00)
[2021-09-09] MEDS: ZOSYN 3.375GM +NS 50ML IV SCH (11:05)
[2021-09-09 15:00] VITALS: BP 146/68
== END 2021-09-09 18:02 | disposition home or self-care (01) | DRG 250 ==
LOC: EDH 13:52 → EDHIP 15:21 → OBSVTOIN 15:21 → 2DH 18:43
PROVIDERS: ADMIT Internal Medicine; ATTEND Internal Medicine
PROC: 02703ZZ Dilation of Coronary Artery, One Artery, Percutaneous Approach (ICD-10-PCS; principal; 2021-09-08)
PROC: 4A023N7 Measurement of Cardiac Sampling and Pressure, Left Heart, Percutaneous Approach (ICD-10-PCS; 2021-09-08)
PROC: B2111ZZ Fluoroscopy of Multiple Coronary Arteries using Low Osmolar Contrast (ICD-10-PCS; 2021-09-08)
DX: T82.855A Stenosis of coronary artery stent, initial encounter (principal); I21.4 Non-ST elevation (NSTEMI) myocardial infarction; N39.0 Urinary tract infection, site not specified; Z68.43 Body mass index [BMI] 50.0-59.9, adult; I50.32 Chronic diastolic (congestive) heart failure; E78.5 Hyperlipidemia, unspecified; E66.01 Morbid (severe) obesity due to excess calories; E03.9 Hypothyroidism, unspecified; E87.5 Hyperkalemia; E11.65 Type 2 diabetes mellitus with hyperglycemia; K21.9 Gastro-esophageal reflux disease without esophagitis; J44.9 Chronic obstructive pulmonary disease, unspecified; Z20.822 Contact with and (suspected) exposure to COVID-19; Z96.651 Presence of right artificial knee joint; I11.0 Hypertensive heart disease with heart failure; B96.1 Klebsiella pneumoniae [K. pneumoniae] as the cause of diseases classified elsewhere; G47.33 Obstructive sleep apnea (adult) (pediatric); Y83.8 Other surgical procedures as the cause of abnormal reaction of the patient, or of later complication, without mention of misadventure at the time of the procedure; I25.10 Atherosclerotic heart disease of native coronary artery without angina pectoris; D50.9 Iron deficiency anemia, unspecified; Z79.4 Long term (current) use of insulin; Z91.19 Patient's noncompliance with other medical treatment and regimen; Z82.0 Family history of epilepsy and other diseases of the nervous system; Z82.3 Family history of stroke; Z86.711 Personal history of pulmonary embolism; Z88.6 Allergy status to analgesic agent; Y92.89 Other specified places as the place of occurrence of the external cause; Z79.02 Long term (current) use of antithrombotics/antiplatelets; Z79.82 Long term (current) use of aspirin; Z79.899 Other long term (current) drug therapy; Z82.49 Family history of ischemic heart disease and other diseases of the circulatory system; Z82.5 Family history of asthma and other chronic lower respiratory diseases; Z83.3 Family history of diabetes mellitus
CPT/HCPCS: 36415; 36600; 71045; 71270; 80048; 80053; 80061; 81001; 82550; 82728; 82803; 82948; 83540; 83550; 83735; 83874; 83880; 84100; 84145; 84443; 84484; 85025; 85347; 85610; 85730; 87077; 87088; 87186; 92920; 92978; 93005; 93306; 93454; 94640; 94664; 94760; 99156; 99157; C1887; G0378; J0583; J1644; J1650; J1756; J1815; J2250; J2405; J2543; J3010; J3475; J3490; Q0163; Q9967

== ENCOUNTER → 2021-12-18 | Outpatient (CLI) | payer OTHER ==
[~2021-12-18] MED LIST changes: -CEPH500B PO; +CLOP75TA32 PO; -FENO160T16 PO; +FENO48TA10 PO; -INSU100I35 SQ; -MAG-156 PO; -METO10TA3 PO; -METO200T49 PO; +METO50TA18 PO; -NIFE90TA65 PO; +OLME40TA18 PO; -PRAS10TA9 PO; +PROG200C11 PO
== END | disposition home or self-care (01) ==
LOC: RAH 10:03
PROVIDERS: ATTEND Family Medicine
DX: Z12.31 Encounter for screening mammogram for malignant neoplasm of breast (principal)
CPT/HCPCS: 77067

== ENCOUNTER 2022-05-10 15:05 | Emergency (ER) | payer OTHER ==
[~2022-05-10] VITALS: Ht 157.5 cm; Wt 127.0 kg
[2022-05-10 17:03] LABS: BASOPHILS % (AUTO) 0.6 % (0.0-5.0); EOSINOPHILS % (AUTO) 3.3 % (0.0-8.0); HEMATOCRIT 34.1 % (36-48); LYMPHOCYTES % (AUTO) 23.8 % (21.0-51.0); MEAN CORPUSCULAR HEMOGLOBIN 28.8 pg (27.0-33.0); MEAN CORPUSCULAR HGB CONC 33.4 g/dL (32.0-36.0); MEAN CORPUSCULAR VOLUME 86.1 fL (79-99); MONOCYTES % (AUTO) 7.2 % (3.0-13.0); NEUTROPHILS % (AUTO) 64.6 % (40.0-77.0); PLATELET COUNT (AUTO) 313 K/uL (130-400); RED BLOOD CELL COUNT(AUTO) 3.96 MIL/uL (4.00-5.50); WHITE BLOOD COUNT (AUTO) 8.4 K/uL (4.8-10.8)
[2022-05-10 17:15] LABS: CREATININE 1.4 mg/dL (0.5-1.5); INR 0.93 (0.85-1.15); POTASSIUM 4.9 mmol/L (3.5-5.1)
[2022-05-10 17:16] LABS: PARTIAL THROMBOPLASTIN TIME 29.1 SEC (26.3-35.5)
[2022-05-10 17:17] LABS: ALBUMIN 3.2 g/dL (3.5-5.0); TOTAL PROTEIN, SERUM 7.1 g/dL (6.0-8.3)
[2022-05-10 18:40] LABS: APPEARANCE,URINE CLOUDY (CLEAR); BILIRUBIN,URINE NEGATIVE (NEGATIVE); COLOR,URINE LIGHT-YELLOW (YELLOW); GLUCOSE, URINE (UA) NEGATIVE (NEGATIVE); KETONES,URINE NEGATIVE (NEGATIVE); LEUKOCYTE ESTERASE ,URINE NEGATIVE Leu/uL (NEGATIVE); NITRATE,URINE NEGATIVE (NEGATIVE); OCCULT BLOOD,URINE NEGATIVE (NEGATIVE); PH,URINE 5.5 (5.0-8.0); PROTEIN,URINE NEGATIVE (NEGATIVE); UROBILINOGEN,URINE 0.2 mg/dL (0.2-1.0)
[2022-05-10 18:44] LABS: BACTERIA,URINE RARE /HPF (None Seen); MUCUS,URINE RARE LPF (None Seen); RBC,URINE 0-1 /HPF (0-1); SQUAMOUS EPITHELIAL CELL,UR MANY /HPF (0-2)
[2022-05-10] MEDS ORDERED: IOHEXOL 350 MG/ML 100ML INFUS..BTL IV ONE (22:07)
[2022-05-10 23:18] VITALS: BP 141/68
[2022-05-10] MEDS ORDERED: PRED20TA3 PO (23:31)
[2022-05-10] MEDS ORDERED: DIPH50 PO (23:31)
== END 2022-05-11 00:13 | disposition home or self-care (01) ==
LOC: EDH 15:05
DX: L25.9 Unspecified contact dermatitis, unspecified cause (principal); R06.02 Shortness of breath; J44.9 Chronic obstructive pulmonary disease, unspecified; E11.9 Type 2 diabetes mellitus without complications; E78.00 Pure hypercholesterolemia, unspecified; E66.9 Obesity, unspecified; I25.2 Old myocardial infarction; K21.9 Gastro-esophageal reflux disease without esophagitis; I51.9 Heart disease, unspecified; Z79.82 Long term (current) use of aspirin; Z79.84 Long term (current) use of oral hypoglycemic drugs; Z79.899 Other long term (current) drug therapy; Z88.5 Allergy status to narcotic agent; Z95.5 Presence of coronary angioplasty implant and graft; Z68.43 Body mass index [BMI] 50.0-59.9, adult; Z79.4 Long term (current) use of insulin
CPT/HCPCS: 99285; 71275; 71045; 84484 ×2; 80053; 83880; 85025; 85378; 85610; 85730; 81001; 36415; Q9967

== ENCOUNTER → 2023-03-24 | Outpatient (CLI) | payer OTHER ==
[~2023-03-24] MED LIST changes: +DIPH50 PO; +PRED20TA3 PO
[2023-03-24 16:31] LABS: CREATININE 1.6 mg/dL (0.5-1.5); MAGNESIUM 1.4 mg/dL (1.80-2.40)
== END | disposition home or self-care (01) ==
LOC: LAB 14:48
PROVIDERS: ATTEND Internal Medicine Cardiovascular Disease
DX: E83.42 Hypomagnesemia (principal)
CPT/HCPCS: 36415; 80048; 83735

== ENCOUNTER 2024-12-19 13:45 | Emergency (ER) | payer OTHER, MEDICARE ==
[~2024-12-19] VITALS: Ht 157.5 cm; Wt 103.9 kg
[~2024-12-19 13:45] MED LIST changes: -DIPH50 PO; +DIPH50CA38 PO; +GABA-1405 PO; -GABA600T10 PO; +GLIP10TA16 PO; -GLIP10TA9 PO
--- NOTE | 2024-12-19 13:53 | ERN ---
ED Note History of Present Illness Stated Complaint: BUTTOCK PAIN Chief Complaint: Mechanical Fall Time Seen by MD: 13:47 Dictation: PATIENT IS A 79-YEAR-OLD FEMALE COMING IN TODAY WITH LEFT ANTEROLATERAL HIP AND PELVIC PAIN TENDERNESS THAT IS STARTED LAST TUESDAY WHEN SHE HAD A SAME LEVEL SLIP FALL. SHE STATES SHE WAS AMBULATING WITH A WALKER WHEN SHE MISSTEPPED AND FELL ON HER LEFT HIP AREA. NO SHORTENING OR ROTATION SHE HAS BEEN AMBULATORY SINCE. SHE HAS ALREADY SEEN HER PRIMARY CARE DOCTOR, DR. SPEAR WHO DID X-RAYS ON TUESDAY AND TOLD HER TO COME BACK IN ONE WEEK FOR THE RESULTS. PRESCRIBED HER TRAMADOL FOR PAIN. ROTATION OF LEFT LEG. NO BLOOD THINNERS NO HEAD INJURY NO SPINE PAIN AND NO TRAUMA ALERT CRITERIA. Allergies: Coded Allergies: codeine (Unverified Allergy, Unknown, 06/22/17) Home Meds Active Scripts Diphenhydramine HCl (Benadryl) 50 Mg Cap, 50 MG PO QID PRN for itching for 10 Days, #30 CAP 0 Refills Prov:EMILY FINN MD 05/10/22 Prednisone (Prednisone) 20 Mg Tablet, 1 TAB PO AD for 6 Days, #14 TAB 0 Refills TAKE 3 TAB BY MOUTH daily X3 DAYS, THEN TAKE 2 TAB BY MOUTH daily X2 DAYS, THEN TAKE 1 TAB BY MOUTH ONCE A DAY X1 DAY. Prov:EMILY FINN MD 05/10/22 Metoprolol Tartrate (Metoprolol Tartrate) 50 Mg Tablet, 50 MG PO BID for 90 Days, #180 TAB 3 Refills Prov:ALBERTO MANDEL MD 09/09/21 Reported Medications Omeprazole (Omeprazole) 40 Mg Capsule.dr, 40 MG PO DAILY, CAP 11/06/21 Clopidogrel Bisulfate (Clopidogrel) 75 Mg Tablet, 75 MG PO DAILY, TAB 11/06/21 Gabapentin (Gabapentin) 600 Mg Tablet, 1200 MG PO TID, TAB 11/06/21 Fenofibrate Nanocrystallized (Fenofibrate) 48 Mg Tablet, 54 MG PO DAILYBKFST, TAB 09/04/21 Olmesartan Medoxomil (Olmesartan Medoxomil) 40 Mg Tablet, 40 MG PO DAILY, TAB 09/04/21 Progesterone,Micronized (Progesterone) 200 Mg Capsule, 200 MG PO HS, CAP 09/04/21 Aspirin (Aspirin) 81 Mg Tab.chew, 81 MG PO DAILY, TAB.CHEW 09/09/20 Glipizide (Glipizide) 10 Mg Tablet, 10 MG PO HS, TAB 09/09/20 Metformin HCl (Metformin HCl) 1,000 Mg Tablet, 1000 MG PO BID, TAB 09/09/20 Simvastatin (Simvastatin) 40 Mg Tablet, 40 MG PO HS, TAB 08/27/18 Levothyroxine Sodium (Levothyroxine Sodium) 112 Mcg Tablet, 112 MCG PO ACBKFST, TAB 08/27/18 Past Medical History Past Medical History: COPD, Diabetes-Type II, GERD, High Cholesterol, Heart Disease Additional Past Medical Hx: P.E. SLEEP APNEA, Surgical History: Other Surgical History Other: HEART STENT Social History: Negative, Other History: Not Applicable RN Note Reviewed/Agreed w/PFSH: Yes Review of System Dictation CONSTITUTIONAL: NEGATIVE EXCEPT FOR HPI HEAD/FACE: NEGATIVE EXCEPT FOR HPI EENT: NEGATIVE EXCEPT FOR HPI RESPIRATORY: NEGATIVE EXCEPT FOR HPI GASTROINTESTINAL/ABDOMINAL: NEGATIVE EXCEPT FOR HPI GENITOURINARY: NEGATIVE EXCEPT FOR HPI MUSCULOSKELETAL: NEGATIVE EXCEPT FOR HPI LEFT HIP AND PELVIC PAIN INTEGUMENTARY: NEGATIVE EXCEPT FOR HPI NEUROLOGICAL/PSYCH: NEGATIVE EXCEPT FOR HPI HEMATOLOGIC/LYMPHATIC: NEGATIVE EXCEPT FOR HPI ALL SYSTEMS NEGATIVE, EXCEPT NOTED ABOVE. 13 POINT REVIEW OF SYSTEMS ASSESSED AND ALL NEGATIVE EXCEPT FOR ABOVE. Initial Vital Sign VS Vital Signs Date Time Temp Pulse Resp B/P (MAP) Pulse Ox O2 Delivery O2 Flow Rate FiO2 12/19/24 13:56 98.2 80 18 138/73 98 Room Air 0 12/19/24 14:13 21 Physical Exam Dictation VITAL SIGNS REVIEWED GENERAL APPEARANCE: ALERT, ORIENTED X 3, MODERATE ACUTE DISTRESS, WELL DEVELOPED, NOURISHED. MORBID OBESITY HEAD AND FACE: NON-TRAUMATIC. EYES: PERRL, PINK CONJUNCTIVAS, EYELID NO TRAUMA, ANTERIOR CHAMBER WITH ARCUS SENILIS. EARS: PINNAS INTACT AND NO SIGNS OF TRAUMA OR ERYTHEMA EAR CANALS CLEAR AND NO DISCHARGE TM NO ERYTHEMA NOSE: NO DISCHARGE, NO BLEEDING. OROPHARYNX: MOUTH NORMAL, TONGUE PINK, PHARYNX CLEAR,NO ERYTHEMA, TONSILS NO EXUDATES, NO ABSCESSES NOTED, MUCOUS MEMBRANE MOIST NECK: SUPPLE, NON-TENDER, NO THYROMEGALY, NO MASSES, NO JVD, NO BRUITS BREAST:DEFERRED CHEST:NO TENDERNESS, NO CREPITUS, NO PARADOXICAL MOVEMENT, NO RETRACTIONS LUNGS:CLEAR, WELL-VENTILATED, SYMMETRIC, NO RALES, NO WHEEZING, NO RHONCHI, NO STRIDOR, GOOD BREATH SOUNDS BILATERALLY HEART: REGULAR RATE, REGULAR RHYTHM, NO MURMUR, NO GALLOPS VASCULAR: NO PERIPHERAL EDEMA, ABDOMEN: SOFT, POSITIVE BOWEL SOUNDS, NONDISTENDED, NO GUARDING, NONTENDER, NO REBOUND, NO MASSES NO HEPATOMEGALY, NO SPLENOMEGALY, NO MONTANO'S SIGN, NO HERNIAS. RECTAL: DEFERRED GENITAL: DEFERRED NEUROLOGICAL: NORMAL SPEECH, MOTOR FUNCTION INTACT, SENSORY FUNCTION INTACT MUSCULOSKELETAL: NECK NONTENDER, FULL RANGE OF MOTION, BACK NONTENDER, FULL RANGE OF MOTION, EXTREMITIES: LEFT ANTEROLATERAL HIP AND PELVIC PAIN TENDERNESS. NO SHORTENING OR ROTATION OF LEFT LEG. DISTAL NEUROVASCULAR CMS INTACT SKIN: COLOR PINK, DRY, NO TURGOR, NO RASH, NO LACERATIONS, NO ABRASIONS, NO CONTUSIONS. LYMPHATIC: DEFERRED Results (Laboratory/Radiology) Laboratory/Radiology 1510/LEFT HIP X-RAY NEGATIVE. Labs Reviewed?: Yes ED Course ED Course Orders Procedure Category Date Status Time Hip Unilat 2-3vw Left RAD 12/19/24 Resulted 13:50 Acetaminophen 500mg PHA 12/19/24 Complete Tab (Tylenol 500mg T 14:00 Dexamethasone 4mg/Ml PHA 12/19/24 Verified 1ml Vial (Dexametha 15:30 Current Medications Medications (Trade) Dose Ordered Sig/Marilou Route PRN Reason Start Time Stop Time Status Last Admin Dose Admin Acetaminophen (TYLenol 500MG TAB) 1,000 mg ONCE ONCE PO 12/19/24 14:00 12/19/24 14:01 DC 12/19/24 14:03 Vital Signs Date Time Temp Pulse Resp B/P (MAP) Pulse Ox O2 Delivery O2 Flow Rate FiO2 12/19/24 14:13 97.9 79 12 144/67 99 Room Air* 0 21 12/19/24 13:56 98.2 80 18 138/73 98 Room Air 0 1510/PATIENT AWARE HER HIP X-RAY IS NEGATIVE. I WE WILL GIVE HER A SHOT OF DECADRON 8 MG ALONG WITH HER TYLENOL WE WILL SEND HER HOME WITH A ULTRACET AND HAVE HER FOLLOW UP WITH HER PRIMARY CARE DOCTOR. Medical Decision Making MDM MEDICAL DISCHARGE MAKING BASED ON X-RAY OF LEFT HIP AND PAIN MANAGEMENT. PAIN IMPROVED AFTER TREATMENT LEFT HIP X-RAY NEGATIVE FOR FRACTURE PATIENT DISCHARGED HOME NEUROVASCULAR CMS INTACT LEFT LEG. DX & DISP Disposition: Discharge Departure Impression: Primary Impression: Contusion of left hip, initial encounter Additional Impression: Fall Condition: Stable Scripts Tramadol HCl/Acetaminophen (Tramadol-Acetaminophn 37.5-325) 37.5 Mg-325 Mg Tablet 1 EACH PO Q6HPRN PRN for MODERATE TO SEVERE PAIN, #15 TAB 0 Refills Prov: EVIE MARTÍNEZ NP 12/19/24 Additional Instructions: Follow-up with primary care provider in 1 to 2 days. Take medications as directed here in the emergency room. Okay to continue home medications unless otherwise discussed during your visit in the emergency room today. Return to your nearest emergency room if symptoms worsen or if there is no improvement. Call 911 if you need immediate assistance. Take Tylenol or Motrin [id number] as needed and if no contraindications are present. Increase oral hydration. A wound culture or urine culture was ordered here in the emergency room department please follow-up with primary care provider and advise them to get repeat ports from our facility. If you had any Omari wrap/splints that were applied here, please do not remove them until you see your primary care or specialty. Take Ultracet as needed for pain. Diet and activity as tolerated. See your primary care doctor for follow up. Referrals: ZULY SPEAR MD (PCP) Time of Disposition: 15:11 I have reviewed the case, and I agree with, Diagnosis and Plan EVIE MARTÍNEZ NP Dec 19, 2024 13:53
--- NOTE | 2024-12-19 15:03 | HMCIMG ---
EXAM: CR Left Hip, 3 View. CLINICAL HISTORY: LEFT LATERAL HIP PAIN STATUS POST SAME LEVEL FALL LAST TUESDAY. COMPARISON: None provided. FINDINGS: BONES: No acute fracture or aggressive appearing osseous lesion. JOINTS: No dislocation. The joint spaces are normal. SOFT TISSUES: The soft tissues are unremarkable. IMPRESSION: No acute osseous abnormality. If clinical concern persists recommend CT imaging for further evaluation. /[place]
[2024-12-19] MEDS ORDERED: TRAM-543 PO (15:12)
[2024-12-19 16:09] VITALS: BP 135/72; PULSE 73; RESP 14; TEMP 97.8; O2SAT 100
--- NOTE | 2024-12-19 16:10 | NUR ---
DC PATIENT WAS DC'D BY DR BARDALES I EXPLAINED TO PATIENT TO FOLLOW UP WITH PCP, PROVIDED INFO BASED ON DIAGNOSIS, EXPLAINED NEW PRESCRIPTIONS AND HOW TO TAKE THEM, AND ANSWERED ANY FOLLOW UP QUESTIONS PATIENT AMBULATED OUT OF ED, NO COMPLICATIONS
== END 2024-12-19 15:57 | disposition home or self-care (01) ==
LOC: EDH 13:45
DX: S70.02XA Contusion of left hip, initial encounter (principal); E11.9 Type 2 diabetes mellitus without complications; E78.00 Pure hypercholesterolemia, unspecified; J44.9 Chronic obstructive pulmonary disease, unspecified; K21.9 Gastro-esophageal reflux disease without esophagitis; Z79.02 Long term (current) use of antithrombotics/antiplatelets; Z79.82 Long term (current) use of aspirin; Z79.84 Long term (current) use of oral hypoglycemic drugs; Z79.890 Hormone replacement therapy; Z79.899 Other long term (current) drug therapy; Z88.5 Allergy status to narcotic agent; Z95.5 Presence of coronary angioplasty implant and graft; W18.39XA Other fall on same level, initial encounter; Y93.89 Activity, other specified; Y92.89 Other specified places as the place of occurrence of the external cause; Y99.8 Other external cause status
CPT/HCPCS: 99284; 82948; 73502; 96372; J1100